=== PATIENT | female | born 1970 | race Caucasian/White ===

== ENCOUNTER → 2019-12-01 10:21 | Outpatient (BNVA) | payer MEDICAID, SELFPAY | PROVIDERS: Family Provider Family Medicine; PCP Family Medicine; Visit Provider Family Medicine | DX: E11.9 Type 2 diabetes mellitus without complications (principal); E78.00 Pure hypercholesterolemia, unspecified; F41.9 Anxiety disorder, unspecified | CPT/HCPCS: 80053; 80061; 83036; 83721 ==

== ENCOUNTER → 2020-06-14 10:14 | Outpatient (BNVA) | payer MEDICAID, SELFPAY | PROVIDERS: Family Provider Family Medicine; PCP Family Medicine; Visit Provider Family Medicine | DX: Z00.00 Encounter for general adult medical examination without abnormal findings (principal); E11.65 Type 2 diabetes mellitus with hyperglycemia; Z79.4 Long term (current) use of insulin; M54.41 Lumbago with sciatica, right side; G89.29 Other chronic pain; F41.9 Anxiety disorder, unspecified; M54.42 Lumbago with sciatica, left side | CPT/HCPCS: 36416; 82962 ==

== ENCOUNTER → 2021-01-17 09:28 | Outpatient (BNVA) | payer MEDICAID, SELFPAY | PROVIDERS: Family Provider Family Medicine; PCP Family Medicine; Visit Provider Family Medicine | DX: Z00.00 Encounter for general adult medical examination without abnormal findings (principal); E11.65 Type 2 diabetes mellitus with hyperglycemia; Z79.4 Long term (current) use of insulin; E78.00 Pure hypercholesterolemia, unspecified | CPT/HCPCS: 80053; 80061; 83036; 84439; 84443; 85025 ==

== ENCOUNTER 2021-07-25 12:28 | Outpatient (CLI) | payer BC, MEDICAID, SELFPAY ==
--- NOTE | 2021-07-25 13:05 | MM_ITS ---
WS: [id number] BILATERAL 3D TOMOSYNTHESIS DIGITAL SCREENING MAMMOGRAPHY WITH CAD CLINICAL INFORMATION: SCREENING HISTORY: Screening mammogram. Breast soreness COMPARISON: None. TECHNIQUE: Bilateral CC and MLO views. FINDINGS: Scattered fibroglandular densities bilaterally. Punctate calcification RIGHT breast. No suspicious fo placido mass, asymmetry, calcifications, or architectural distortion. No evidence of malignancy. MM/[place] [id number] IMPRESSION: BI-RADS: 2-Benign FOLLOW UP: 1 Year Follow-up Recommend return to annual screening mammography.
== END 2021-07-25 12:29 | disposition home or self-care (01) ==
LOC: RADSHAW 12:31
PROVIDERS: Family Provider Family Medicine; PCP Family Medicine; Visit Provider Family Medicine
DX: Z12.31 Encounter for screening mammogram for malignant neoplasm of breast (principal); N64.4 Mastodynia
CPT/HCPCS: 77063; 77067

== ENCOUNTER → 2021-11-28 09:20 | Outpatient (BNVA) | payer BC, MEDICAID, SELFPAY | PROVIDERS: Family Provider Family Medicine; PCP Family Medicine; Visit Provider Family Medicine | DX: E11.9 Type 2 diabetes mellitus without complications (principal); R63.4 Abnormal weight loss; E05.90 Thyrotoxicosis, unspecified without thyrotoxic crisis or storm | CPT/HCPCS: 80053; 82150; 83036; 84439; 84443; 85025 ==

== ENCOUNTER 2022-02-20 07:06 | Emergency (ER) | payer BC, MEDICAID, SELFPAY ==
[2022-02-20 07:16] VITALS: BP 113/75; PULSE 124; RESP 20; TEMP 36.3; O2SAT 100
--- NOTE | 2022-02-20 07:29 | ECG_ITS ---
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 Measurements Intervals [place] Rate: 88 P: 68 MA: 174 QRS: 10 QRSD: 90 T: 78 QT: 367 QTc: 445 Interpretive Statements SINUS RHYTHM SEPTAL MYOCARDIAL INFARCTION , OF INDETERMINATE AGE [40+ ms Q WAVE IN V1/V2] No previous ECG available for comparison Electronically Signed On 02-20-2022 19:03:57 CRICKET COACH by Socrates Ray M.D. [email or web address] children's [id number]
--- NOTE | 2022-02-20 07:33 | ED_ITS ---
Documented by User: YINA Sexton 02/20/22 16:20 HPI - Female Genitourinary General: Chief complaint: Urogenital-Female Stated complaint: urogenital Time Seen by Provider: 02/20/22 07:08 History of Present Illness: Patient is a 51-year-old female comes to the ED with genital pain. Patient states that approximately 4 days ago she noticed some swelling of her labia that has continued to get more painful over the past couple days and the swelling is gotten bigger. She rates her pain currently an 8 out of 10. She endorses having some dysuria. Patient reports having some white vaginal discharge. Associated symptoms: Reports vaginal discharge (White discharge); Deny abdominal pain, headache(s) or nausea Review of Systems Const: Denies: fever(s), chills or fatigue Eyes: Denies: change in vision or eye discomfort ENMT: Denies: throat pain, odynophagia, nasal discharge or nasal congestion Card: Denies: chest pain, palpitations, edema, swelling of feet/ankles, dyspnea on exertion or orthopnea Resp: Denies: dyspnea, productive cough or non-productive cough GI: Denies: abdominal pain, nausea, vomiting, diarrhea, constipation or hematochezia : Reports: difficulty voiding, genital lesions and vaginal discharge (White discharge); Denies: flank pain, dysuria or hematuria Musc: Denies: neck pain, back pain or extremity swelling Skin/Breast: Denies: rash or new lesions Neuro: Denies: headache(s), numbness in extremities or weakness in extremities PFS ED PFSH: Medical History (Updated 02/20/22 @ 16:20 by YINA Sexton) Abnormal weight loss Anxiety Chronic bilateral back pain Diabetes Diabetic neuropathy Encounter for screening mammogram for breast cancer Hypercholesteremia No pertinent family history Social History Smoking and tobacco status: current every day smoker Alcohol intake: never Physical Exam Const: COMMON NORMALS: no acute distress, patient oriented x3 and alert GENERAL APPEARANCE: cooperative and comfortable HENMT: COMMON NORMALS: normocephalic HEAD & SCALP: normocephalic MOUTH: Normal oral and palatal mucosa present THROAT: posterior oropharynx normal and uvula midline Neck/C-Spine: COMMON NORMALS: supple GENERAL: Yes normal visual inspection Resp: COMMON NORMALS: normal respiratory effort, No retractions, No use of accessory muscles and clear to auscultation bilaterally AUSCULTATION: clear to auscultation bilaterally Cardio: COMMON NORMALS: regular rate, regular rhythm, S1 normal heart sound present, S2 normal heart sound present, No gallops present (Cardio), No clicks present (Cardio), No murmurs present (Cardio) and Peripheral pulses 2+ throughout RATE: regular rate RHYTHM: regular rhythm HEART SOUNDS: S1 normal heart sound present and S2 normal heart sound present PERIPHERAL PULSES: Peripheral pulses 2+ throughout GI: COMMON NORMALS: Normal to inspection, nondistended, normoactive bowel sounds present, Soft to palpation, non-tender and no masses PALPATION: Yes Soft to palpation : COMMON NORMALS: Yes no CVA tenderness BLADDER/KIDNEY EXAM: Yes no CVA tenderness EXTERNAL FEMALE EXAM: Yes externally tender (Left labia), Yes external swelling (Left labia) and Yes other (White vaginal discharge) Back/Pelvis: COMMON NORMALS: no CVA tenderness Extremity: COMMON NORMALS: normal to inspection Neuro: COMMON NORMALS: patient oriented x3 SENSORIUM/ORIENTATION: Yes alert GAIT: Yes Normal gait present Skin: GENERAL SKIN EXAM: dry skin Course Consultations: Consultation #1: I contacted Dr. Cesar the OB specialist national account executive and told about patient case and CT findings. He stated he would like to come down to examine patient and then will decide how to treat. He came down and saw patient here in the ED and he is suspicious that patient has a bad STD infection. After he did a full pelvic with speculum exam on patient he came back and told me that he thinks patient has trichomonas and he collected swabs for gonorrhea, chlamydia and wet prep. He does not think patient needs to be admitted and should be discharged home with some antibiotics. He told me to have patient given a dose of IM Rocephin and send her home on Flagyl 500 mg twice daily for a week. Have her follow-up with PCP/Blood Bank Worker Later this week. Time: 11:25 Vital Signs: Vital signs: Vital Signs Temperature 97.3 F L 02/20/22 07:16 Pulse Rate 82 02/20/22 08:38 Respiratory Rate 14 02/20/22 08:38 Blood Pressure 114/66 02/20/22 08:38 Pulse Oximetry 98 02/20/22 08:38 Oxygen Delivery Me thod 02/20/22 08:38 MDM - Female Medical Decision Making Patient is a 51-year-old female comes to the ED with genital pain. Patient states that approximately 4 days ago she noticed some swelling of her labia that has continued to get more painful over the past couple days and the swelling is gotten bigger. Vitals are stable. Patient is a white blood cell count of 15.1 and her blood sugars 452. The rest of the labs were unremarkable. CT of abdomen pelvis showed possible left perineum abscess with an additional extensive soft tissue inflammation extending anterior to the mons pubis posterior to the perineum. I contacted Dr. Bray about patient case and he reviewed CT findings did not feel comfortable managing this patient and thought I should contact the Blood Bank Worker specialist. I contacted Dr. Cesar the Blood Bank Worker specialist national account executive and told about patient case and CT findings. He stated he would like to come down to examine patient and then will decide how to treat. He came down and saw patient here in the ED and he is suspicious that patient has a bad STD i nfection. After he did a full pelvic with speculum exam on patient he came back and told me that he thinks patient has trichomonas and he collected swabs for gonorrhea, chlamydia and wet prep. Dr. Cesar performed swab and looked under the microscope and saw trichomonas he does not think patient needs to be admitted and should be discharged home with some antibiotics. He told me to have patient given a dose of IM Rocephin and send her home on Flagyl 500 mg twice daily for a week. Have her follow-up with PCP/Blood Bank Worker Later this week. Lab Data I reviewed the patient's lab results. 02/20/22 07:50 02/20/22 07:[address] 02/20/22 07:50 IMPRESSION: 1. Well formed LEFT perineum abscess measuring 2.6 x 2.0 x 3.0 cm. There is additional extensive soft tissue inflammation extending anterior to the mons pubis and posterior to the perineum. 2. Additional soft tissue thickening extends across the midline to involve the vaginal introitus and the anus. Possibility of underlying mass needs to be considered and excluded with this amount of inflammation and soft tissue extension. 3. Markedly distended urinary bladder. Patient may not be able to void due to the extensive inflammation in the perineum. Laboratory Results WBC 15.1 10^3/uL (4.0-10.0) H 02/20/22 07:50 RBC 5.34 10^6/uL (4.1-5.3) H 02/20/22 07:50 Hgb 13.4 g/dL (11.5-15.3) 02/20/22 07:50 Hct 42.5 % (37.0-47.0) 02/20/22 07:50 MCV 79.6 fl (81-99) L 02/20/22 07:50 MCH 25.1 pg (28.0-34.0) L 02/20/22 07:50 MCHC 31.5 g/dL (30.0-36.0) 02/20/22 07:50 RDW 13.4 % (12.1-15.1) 02/20/22 07:50 Plt Count 435 10^3/cmm (130-400) H 02/20/22 07:50 MPV 9.8 fL (7.4-10.4) 02/20/22 07:50 Neut % (Auto) 70.8 % 02/20/22 07:50 Lymph % (Auto) 18.8 % 02/20/22 07:50 [place] % (Auto) 9.0 % 02/20/22 07:50 Eos % (Auto) 0.5 % 02/20/22 07:50 Baso % (Auto) 0.6 % 02/20/22 07:50 Neut # (Auto) 10.65 10^3/uL (1.8-7.7) H 02/20/22 07:50 Lymph # (Auto) 2.8 10^3/uL (0.8-4.8) 02/20/22 07:50 [place] # (Auto) 1.4 10^3/uL (0.2-0.9) H 02/20/22 07:50 Eos # (Auto) 0.1 10^3/uL (0.0-0.8) 02/20/22 07:50 Baso # (Auto) 0.1 10^3/uL (0.0-0.1) 02/20/22 07:50 Nucleated RBC % (auto) 0 % 02/20/22 07:50 Nucleated RBCs # 0.0 /100WBC 02/20/22 07:50 Sodium 129 mmol/L (136-145) L 02/20/22 07:50 Potassium 4.3 mmol/L (3.5-5.1) 02/20/22 07:50 Chloride 90 mmol/L (98-107) L 02/20/22 07:50 Carbon Dioxide 25 mmol/L (22-29) 02/20/22 07:50 Anion Gap 18.3 (5-19) 02/20/22 07:50 BUN 18 mg/dL (6-20) 02/20/22 07:50 Creatinine 0.9 mg/dL (0.5-0.9) 02/20/22 07:50 GFR Calculation 65.8 mL/min (90-130) L 02/20/22 07:50 Glucose 452 mg/dL (65-115) H 02/20/22 07:50 POC Glucose 220 mg/dL (70-110) H 02/20/22 10:13 Calculated Osmolality 290 mOsm/kg (285-295) 02/20/22 07:50 Calcium 9.8 mg/dL (8.5-10.5) 02/20/22 07:50 Total Bilirubin 0.2 mg/dL (0.15-1.2) 02/20/22 07:50 AST 14 U/L (0-32) 02/20/22 07:50 ALT 16 U/L (0-33) 02/20/22 07:50 Alkaline Phosphatase 117 U/L (35-105) H 02/20/22 07:50 Total Protein 8.3 g/dL (6.6-8.7) 02/20/22 07:50 Albumin 4.2 g/dL (3.5-5.2) 02/20/22 07:50 Globulin 4.1 g/dL (1.3-4.6) 02/20/22 07:50 Lipase 21 U/L (13-60) 02/20/22 07:50 Serum Ketones Negative (Negative) 02/20/22 07:50 Discharge Plan Discharge Patient Disposition: Home Clinical Impression: STD (sexually transmitted disease) Hyperglycemia due to type 2 diabetes mellitus Qualifiers: Diabetes mellitus parts counterman insulin use: without retirement use Qualified Code(s): E11.65 - Type 2 diabetes mellitus with hyperglycemia Condition: Stable Prescriptions: New metronidazole 500 mg tablet 500 mg PO BID 7 Days Qty: 14 0RF No Action melatonin 3 mg capsule 3 mg PO DAILY ascorbic acid (vitamin C) 1,000 mg tablet 500 mg PO DAILY TobraDex 0.3-0.1 % ointment 1 applic ophthalmic (eye) TID Qty: 3.5 1RF Rx Instructions: space evenly during waking hours fluconazole [Diflucan] 150 mg tablet 150 mg PO Q3D 15 Days Qty: 5 0RF doxycycline hyclate 100 mg tablet 100 mg PO BID Qty: 20 0RF pravastatin 40 mg tablet 40 mg PO DAILY 90 Days Qty: 90 3RF Farxiga 10 mg tablet See Rx Instructions .ROUTE .COMPLEX 60 Days Qty: 60 1RF Dose Instruction: TAKE 1 TABLET BY MOUTH EVERY DAY Rx Instructions: TAKE 1 TABLET BY MOUTH EVERY DAY pregabalin 200 mg capsule 200 mg PO BID 90 Days Qty: 180 5RF albuterol sulfate [ProAir HFA] 90 mcg/actuation HFA aerosol inhaler 2 puff INHALATION QID PRN (Reason: shortness of breath or wheezing) 30 Days Qty: 18 11RF metformin 500 mg tablet See Rx Instructions .ROUTE .COMPLEX Qty: 60 5RF Dose Instruction: TAKE ONE TABLET BY MOUTH TWICE DAILY Rx Instructions: TAKE ONE TABLET BY MOUTH TWICE DAILY Humulin R U-500 (Conc) Kwikpen 500 unit/mL (3 mL) insulin pen 50 unit SUBCUT .before meals TID 30 Days Qty: 6 5RF azithromycin 250 mg tablet See Rx Instructions PO .COMPLEX Qty: 6 0RF Rx Instructions: For 250 mg dose pack: take 500 mg today (day 1), then 250 mg for 4 days (days 2-5) PO carisoprodol 350 mg tablet 350 mg PO ONCE 30 Days Qty: 30 5RF fluticasone propionate 50 mcg/actuation spray,suspension 2 spray INTRANASAL DAILY 30 Days Qty: 18.2 5RF Rx Instructions: administer into each nostril alprazolam 1 mg tablet 1 mg PO BID 30 Days Qty: 60 5RF hydrocodone-acetaminophen 10-325 mg tablet 1 tab PO .One to TID as needed PRN (Reason: pain) 30 Days Qty: 75 0RF Discharge Orders: Discharge ED (Routine); Ordered 02/20/22 Ordered By: Joseluis Irvin Referrals: Bentley Elizabeth MD [Primary Care Provider] - Discharge Diet: Regular Discharge Activity: Increase activity as tolerated Patient Instructions: Sexually Transmitted Diseases (ED), Trichomoniasis (ED), Opioid Safety Activity Restrictions/Additional Instructions: Follow-up with medical provider as directed for reevaluation in the next 3 days. Take medications as prescribed. Return to the ER or your medical provider if condition worsens. Please read and understand discharge instructions. Thank you for choosing [facility] for your healthcare needs today. Please realize this is an emergency room and that we are providing you with a medical screening exam and this may not be complete and all inclusive of all the testing and or work up that you may need to determine your ailment or severity of your illness. It is very important that you follow up as instructed or that you return to the Emergency Department should you have concerns or if your condition changes or worsens in any way. Coding Level of Care Code ED Fish Conservationist for Chg Fwd Exam Comprehensive Documented by User: Demario Alex DO 02/20/22 16:29 HPI - Female Genitourinary General: Chief complaint: Urogenital-Female Stated complaint: urogenital Time Seen by Provider: 02/20/22 07:08 [facility] ED PFSH: Medical History (Updated 02/20/22 @ 16:20 by YINA Sexton) Abnormal weight loss Anxiety Chronic bilateral back pain Diabetes Diabetic neuropathy Encounter for screening mammogram for breast cancer Hypercholesteremia No pertinent family history Social History Smoking and tobacco status: current every day smoker Alcohol intake: never Course Vital Signs: Vital signs: Vital Signs Temperature 97.3 F L 02/20/22 07:16 Pulse Rate 82 02/20/22 08:38 Respiratory Rate 14 02/20/22 08:38 Blood Pressure 114/66 02/20/22 08:38 Pulse Oximetry 98 02/20/22 08:38 Oxygen Delivery Me thod 02/20/22 08:38 MDM - Female Medical Decision Making Patient is a 51-year-old female comes to the ED with genital pain. Patient states that approximately 4 days ago she noticed some swelling of her labia that has continued to get more painful over the past couple days and the swelling is gotten bigger. Vitals are stable. Patient is a white blood cell count of 15.1 and her blood sugars 452. The rest of the labs were unremarkable. CT of abdomen pelvis showed possible left perineum abscess with an additional extensive soft tissue inflammation extending anterior to the mons pubis posterior to the perineum. I contacted Dr. Bray about patient case and he reviewed CT findings did not feel comfortable managing this patient and thought I should contact the Blood Bank Worker specialist. I contacted Dr. Cesar the Blood Bank Worker specialist national account executive and told about patient case and CT findings. He stated he would like to come down to examine patient and then will decide how to treat. He came down and saw patient here in the ED and he is suspicious that patient has a bad STD infection. After he did a full pelvic with speculum exam on patient he came back and told me that he thinks patient has trichomonas and he collected swabs for gonorrhea, chlamydia and wet prep. Dr. Cesar performed swab and looked under the microscope and saw trichomonas he does not think patient needs to be admitted and should be discharged home with some antibiotics. He told me to have patient given a dose of IM Rocephin and send her home on Flagyl 500 mg twice daily for a week. Have her follow-up with PCP/Blood Bank Worker Later this week. Chart reviewed and patient discussed with midlevel. Agree with assessment and plan. Lab Data 02/20/22 07:50 02/20/22 07:[address] 02/20/22 07:50 IMPRESSION: 1. Well formed LEFT perineum abscess measuring 2.6 x 2.0 x 3.0 cm. There is additional extensive soft tissue inflammation extending anterior to the mons pubis and posterior to the perineum. 2. Additional soft tissue thickening extends across the midline to involve the vaginal introitus and the anus. Possibility of underlying mass needs to be considered and excluded with this amount of inflammation and soft tissue extension. 3. Markedly distended urinary bladder. Patient may not be able to void due to the extensive inflammation in the perineum. Laboratory Results WBC 15.1 10^3/uL (4.0-10.0) H 02/20/22 07:50 RBC 5.34 10^6/uL (4.1-5.3) H 02/20/22 07:50 Hgb 13.4 g/dL (11.5-15.3) 02/20/22 07:50 Hct 42.5 % (37.0-47.0) 02/20/22 07:50 MCV 79.6 fl (81-99) L 02/20/22 07:50 MCH 25.1 pg (28.0-34.0) L 02/20/22 07:50 MCHC 31.5 g/dL (30.0-36.0) 02/20/22 07:50 RDW 13.4 % (12.1-15.1) 02/20/22 07:50 Plt Count 435 10^3/cmm (130-400) H 02/20/22 07:50 MPV 9.8 fL (7.4-10.4) 02/20/22 07:50 Neut % (Auto) 70.8 % 02/20/22 07:50 Lymph % (Auto) 18.8 % 02/20/22 07:50 [place] % (Auto) 9.0 % 02/20/22 07:50 Eos % (Auto) 0.5 % 02/20/22 07:50 Baso % (Auto) 0.6 % 02/20/22 07:50 Neut # (Auto) 10.65 10^3/uL (1.8-7.7) H 02/20/22 07:50 Lymph # (Auto) 2.8 10^3/uL (0.8-4.8) 02/20/22 07:50 [place] # (Auto) 1.4 10^3/uL (0.2-0.9) H 02/20/22 07:50 Eos # (Auto) 0.1 10^3/uL (0.0-0.8) 02/20/22 07:50 Baso # (Auto) 0.1 10^3/uL (0.0-0.1) 02/20/22 07:50 Nucleated RBC % (auto) 0 % 02/20/22 07:50 Nucleated RBCs # 0.0 /100WBC 02/20/22 07:50 Sodium 129 mmol/L (136-145) L 02/20/22 07:50 Potassium 4.3 mmol/L (3.5-5.1) 02/20/22 07:50 Chloride 90 mmol/L (98-107) L 02/20/22 07:50 Carbon Dioxide 25 mmol/L (22-29) 02/20/22 07:50 Anion Gap 18.3 (5-19) 02/20/22 07:50 BUN 18 mg/dL (6-20) 02/20/22 07:50 Creatinine 0.9 mg/dL (0.5-0.9) 02/20/22 07:50 GFR Calculation 65.8 mL/min (90-130) L 02/20/22 07:50 Glucose 452 mg/dL (65-115) H 02/20/22 07:50 POC Glucose 220 mg/dL (70-110) H 02/20/22 10:13 Calculated Osmolality 290 mOsm/kg (285-295) 02/20/22 07:50 Calcium 9.8 mg/dL (8.5-10.5) 02/20/22 07:50 Total Bilirubin 0.2 mg/dL (0.15-1.2) 02/20/22 07:50 AST 14 U/L (0-32) 02/20/22 07:50 ALT 16 U/L (0-33) 02/20/22 07:50 Alkaline Phosphatase 117 U/L (35-105) H 02/20/22 07:50 Total Protein 8.3 g/dL (6.6-8.7) 02/20/22 07:50 Albumin 4.2 g/dL (3.5-5.2) 02/20/22 07:50 Globulin 4.1 g/dL (1.3-4.6) 02/20/22 07:50 Lipase 21 U/L (13-60) 02/20/22 07:50 Serum Ketones Negative (Negative) 02/20/22 07:50 Discharge Plan Discharge Patient Disposition: Home Clinical Impression: STD (sexually transmitted disease) Hyperglycemia due to type 2 diabetes mellitus Qualifiers: Diabetes mellitus parts counterman insulin use: without retirement use Qualified Code(s): E11.65 - Type 2 diabetes mellitus with hyperglycemia Condition: Stable Prescriptions: New metronidazole 500 mg tablet 500 mg PO BID 7 Days Qty: 14 0RF No Action melatonin 3 mg capsule 3 mg PO DAILY ascorbic acid (vitamin C) 1,000 mg tablet 500 mg PO DAILY TobraDex 0.3-0.1 % ointment 1 applic ophthalmic (eye) TID Qty: 3.5 1RF Rx Instructions: space evenly during waking hours fluconazole [Diflucan] 150 mg tablet 150 mg PO Q3D 15 Days Qty: 5 0RF doxycycline hyclate 100 mg tablet 100 mg PO BID Qty: 20 0RF pravastatin 40 mg tablet 40 mg PO DAILY 90 Days Qty: 90 3RF Farxiga 10 mg tablet See Rx Instructions .ROUTE .COMPLEX 60 Days Qty: 60 1RF Dose Instruction: TAKE 1 TABLET BY MOUTH EVERY DAY Rx Instructions: TAKE 1 TABLET BY MOUTH EVERY DAY pregabalin 200 mg capsule 200 mg PO BID 90 Days Qty: 180 5RF albuterol sulfate [ProAir HFA] 90 mcg/actuation HFA aerosol inhaler 2 puff INHALATION QID PRN (Reason: shortness of breath or wheezing) 30 Days Qty: 18 11RF metformin 500 mg tablet See Rx Instructions .ROUTE .COMPLEX Qty: 60 5RF Dose Instruction: TAKE ONE TABLET BY MOUTH TWICE DAILY Rx Instructions: TAKE ONE TABLET BY MOUTH TWICE DAILY Humulin R U-500 (Conc) Kwikpen 500 unit/mL (3 mL) insulin pen 50 unit SUBCUT .before meals TID 30 Days Qty: 6 5RF azithromycin 250 mg tablet See Rx Instructions PO .COMPLEX Qty: 6 0RF Rx Instructions: For 250 mg dose pack: take 500 mg today (day 1), then 250 mg for 4 days (days 2-5) PO carisoprodol 350 mg tablet 350 mg PO ONCE 30 Days Qty: 30 5RF fluticasone propionate 50 mcg/actuation spray,suspension 2 spray INTRANASAL DAILY 30 Days Qty: 18.2 5RF Rx Instructions: administer into each nostril alprazolam 1 mg tablet 1 mg PO BID 30 Days Qty: 60 5RF hydrocodone-acetaminophen 10-325 mg tablet 1 tab PO .One to TID as needed PRN (Reason: pain) 30 Days Qty: 75 0RF Discharge Orders: Discharge ED (Routine); Ordered 02/20/22 Ordered By: Joseluis Irvin Referrals: Bentley Elizabeth MD [Primary Care Provider] - Discharge Diet: Regular Discharge Activity: Increase activity as tolerated Patient Instructions: Sexually Transmitted Diseases (ED), Trichomoniasis (ED), Opioid Safety Activity Restrictions/Additional Instructions: Follow-up with medical provider as directed for reevaluation in the next 3 days. Take medications as prescribed. Return to the ER or your medical provider if condition worsens. Please read and understand discharge instructions. Thank you for choosing [facility] for your healthcare needs today. Please realize this is an emergency room and that we are providing you with a medical screening exam and this may not be complete and all inclusive of all the testing and or work up that you may need to determine your ailment or severity of your illness. It is very important that you follow up as instructed or that you return to the Emergency Department should you have concerns or if your condition changes or worsens in any way. Coding Level of Care Code ED Fish Conservationist for Karina Isidro Exam Comprehensive
--- NOTE | 2022-02-20 07:50 | CT_ITS ---
WS: [id number] CT PELVIS WITH CONTRAST. HISTORY: genital abscess TECHNIQUE: Contiguous imaging is performed of the pelvis with contrast. Coronal and sagittal reformat s are reviewed. All CT scans at [facility] use at least one of these dose optimization techni ques: automated exposure control; mA and/or kV adjustment per patient size (includes targeted exams w here dose is matched to clinical indication); or iterative reconstruction. DLP: 235.21 mGy.cm Contrast: Omnipaque 350; 95 mL IV. COMPARISON: None available. Well-circumscribed abscess with wall enhancement centered in the LEFT perineum measures 2.6 x 2.0 x 3 .0 cm. There is a large amount of surrounding edema with extensive soft tissue inflammation extending anteriorly and posterolateral. There is marked soft tissue thickening extends to involve the vaginal introitus and also surrounding the anus bilaterally. There is marked distention of the urinary bladd er with the bladder measuring 11.5 x 9.0 cm. Diffuse mild fecal retention. Scattered mild atherosclerotic plaque. There are very small bilateral i nguinal lymph nodes which mildly hyperemic. CT/CT pelvis w con* [id number] IMPRESSION: 1. Well formed LEFT perineum abscess measuring 2.6 x 2.0 x 3.0 cm. There is ad ditional extensive soft tissue inflammation extending anterior to the mons pubi s and posterior to the perineum. 2. Additional soft tissue thickening extends across the midline to involve the vaginal introitus and the anus. Possibility of underlying mass needs to be con sidered and excluded with this amount of inflammation and soft tissue extension . 3. Markedly distended urinary bladder. Patient may not be able to void due to the extensive inflammation in the perineum.
[2022-02-20] MEDS: sodium chloride 0.9% 500 ML 999 ML IV (07:59)
[2022-02-20] MEDS: morphine 4 mg/mL SDV 1 mL IVP (08:00)
[2022-02-20] MEDS: ondansetron 2 mg/ML SDV 2 mL 4 MG IVP (08:00)
[2022-02-20 08:02] LABS: Basophils # 0.1 10^3/uL (0.0-0.1); Basophils % 0.6 %; Eosinophils # 0.1 10^3/uL (0.0-0.8); Eosinophils % 0.5 %; Hematocrit 42.5 % (37.0-47.0); Hemoglobin 13.4 g/dL (11.5-15.3); Lymphocytes # 2.8 10^3/uL (0.8-4.8); Lymphocytes % 18.8 %; Mean Corpuscular HGB Conc 31.5 g/dL (30.0-36.0); Mean Corpuscular Hemoglobin 25.1 pg (28.0-34.0); Mean Corpuscular Volume 79.6 fl (81-99); Mean Platelet Volume 9.8 fL (7.4-10.4); Monocytes # 1.4 10^3/uL (0.2-0.9); Neutrophils # 10.65 10^3/uL (1.8-7.7); Neutrophils % 70.8 %; Nucleated Red Blood Cells % 0 %; Platelet Count 435 10^3/cmm (130-400); Red Blood Count 5.34 10^6/uL (4.1-5.3); Red Cell Distribution Width 13.4 % (12.1-15.1); White Blood Count 15.1 10^3/uL (4.0-10.0)
[2022-02-20 08:19] LABS: Alanine Aminotransferase 16 U/L (0-33); Albumin Level 4.2 g/dL (3.5-5.2); Alkaline Phosphatase 117 U/L (35-105); Anion Gap 18.3 (5-19); Aspartate Amino Transferase 14 U/L (0-32); Blood Urea Nitrogen 18 mg/dL (6-20); Calcium 9.8 mg/dL (8.5-10.5); Carbon Dioxide 25 mmol/L (22-29); Chloride 90 mmol/L (98-107); Globulin 4.1 g/dL (1.3-4.6); Glomerular Filtration Rate 65.8 mL/min (90-130); Glucose 452 mg/dL (65-115); Lipase 21 U/L (13-60); Osmolality Calculated 290 mOsm/kg (285-295); Potassium 4.3 mmol/L (3.5-5.1); Sodium 129 mmol/L (136-145); Total Bilirubin 0.2 mg/dL (0.15-1.2); Total Protein 8.3 g/dL (6.6-8.7)
[2022-02-20 08:38] VITALS: BP 114/66; PULSE 82; RESP 14; O2SAT 98
[2022-02-20 08:44] LABS: Ketone (Acetest) Serum Negative (Negative)
[2022-02-20] MEDS: iohexol 350 mg/mL 500 mL Btl (per mL) IV (08:44)
[2022-02-20] MEDS: insulin regular-human 100 units/1 mL 10 UNIT IVP (08:48)
[2022-02-20 10:17] LABS: Glucose Point of Care 220 mg/dL (70-110)
[2022-02-20] MEDS: piperacillin-tazobactam 3.375 GM in sodium chloride 0.9% (plus) 50 ML IV (11:14)
[2022-02-20] MEDS: metroNIDAZOLE 500 MG Tablet PO (11:49)
--- NOTE | 2022-02-20 13:05 | PM.OBGYCN ---
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 Presents to ER c/o pain and swelling in vulva x three days No fever, chills, nausea, vomiting Exam:?comfortable ?Afebrile, VS? normal ?Abd:? soft, nontender ?Vulva:? + erythema / edema ?No abscess ?Vagina:? + copious amount of frothy, purulent discharge ? Wet mount?? +? trichomonads ? GC, Chl, Genprobe done A/P: Vulvar edema / vaginal discharge c/w trichomoniasis no evidence of vulvar abscess plan rx with Rocephin 500 mg IM and Flagyl 500 mg PO BID x 7 days informed patient of sexually-transmitted nature of trichomoniasis advised patient to get partner treated f/u with inspector fibrous wallboard within one week call/return if symptoms persist / worsen Medications/Allergies Home Medications Medication Instructions Recorded Confirmed Last Taken Type ascorbic acid (vitamin C) 1,000 mg 500 mg PO DAILY 06/14/20 01/02/22 Unknown History tablet melatonin 3 mg capsule 3 mg PO DAILY 06/14/20 01/02/22 Unknown History tobramycin-dexamethasone 0.3 %-0.1 1 applic ophthalmic (eye) TID #3.5 01/17/21 01/02/22 Unknown Rx % eye ointment (TobraDex) grams dapagliflozin 10 mg tablet See Rx Instructions .Route 09/28/21 01/02/22 Unknown Rx (Farxiga) .COMPLEX 60 days #60 tabs pravastatin 40 mg tablet 40 mg PO DAILY 90 days #90 tabs 09/28/21 01/02/22 Unknown Rx pregabalin 200 mg capsule 200 mg PO BID 90 days #180 caps 09/28/21 01/02/22 Unknown Rx albuterol sulfate 90 mcg/actuation 2 puff inhalation QID PRN 11/02/21 01/02/22 Unknown Rx aerosol inhaler (ProAir HFA) shortness of breath or wheezing 30 days #18 grams metformin 500 mg tablet See Rx Instructions .Route 11/20/21 01/02/22 Unknown Rx .COMPLEX #60 tabs doxycycline hyclate 100 mg tablet 100 mg PO BID #20 tabs 01/02/22 01/02/22 Unknown Rx fluconazole 150 mg tablet 150 mg PO Q3D 15 days #5 tabs 01/02/22 01/02/22 Unknown Rx (Diflucan) azithromycin 250 mg tablet See Rx Instructions PO .COMPLEX #6 01/04/22 Unknown Rx tabs insulin regular hum U-500 conc 500 50 unit (0.1 mL) SUBCUT .before 01/04/22 Unknown Rx unit/mL(3 mL) subcut pen (Humulin meals TID 30 days #6 mL R U-500 (Conc) Insulin Kwikpen) carisoprodol 350 mg tablet 350 mg PO ONCE 30 days #30 tabs 01/19/22 Unknown Rx fluticasone propionate 50 2 spray intranasal DAILY 30 days 01/20/22 Unknown Rx mcg/actuation nasal #18.2 mL spray,suspension alprazolam 1 mg tablet 1 mg PO BID 30 days #60 tabs 01/27/22 Unknown Rx hydrocodone 10 mg-acetaminophen 1 tab PO .One to TID as needed PRN 02/03/22 Unknown Rx 325 mg tablet pain 30 days #75 tabs metronidazole 500 mg tablet 500 mg PO BID 7 days #14 tabs 02/20/22 Unknown Rx Allergies Allergy/AdvReac Type Severity Reaction Status Date / Time No Known Allergies Allergy Verified 01/02/22 10:49 Additional Medication Information avoid alcohol while taking flagyl REPLACED BY [facility] METER INSTALLER AND REMOVER REPLACED BY [facility]: Medical History Abnormal weight loss Anxiety Chronic bilateral back pain Diabetes Diabetic neuropathy Encounter for screening mammogram for breast cancer Hypercholesteremia Social History Smoking and tobacco status: current every day smoker Alcohol intake: never Vitals/I&O/Wt Last Vital Signs Temp 97.3 F L 02/20/22 07:16 Pulse 82 02/20/22 08:38 Resp 14 02/20/22 08:38 BP 114/66 02/20/22 08:38 Pulse Ox 98 02/20/22 08:38 O2 Del Method 02/20/22 08:38 02/19/22 02/20/22 02/20/22 22:59 06:59 14:59 Intake Total 550 / 550 Balance 550 / 550 Weight last 48 hrs Weight 100 lb Data 02/20/22 07:50 02/20/22 07:50 Micro: Microbiology 02/20/22 11:05 Wet Prep - Final Vaginal A&P Assessment and plan (1) STD (sexually transmitted disease): (2) Trichomoniasis of vagina: Consult Attestations Medical Necessity Statement: treatment of trichomoniasis Coding Level of Care Code Acute Ict Project Manager for g Fwd Diagnoses STD (sexually transmitted disease) A64 Trichomoniasis of vagina A59.01
== END 2022-02-20 11:53 | disposition home or self-care (01) ==
PROVIDERS: Emergency Provider Physician Assistant; PCP Family Medicine
DX: N89.8 Other specified noninflammatory disorders of vagina (principal); A64 Unspecified sexually transmitted disease; E11.65 Type 2 diabetes mellitus with hyperglycemia; Z79.4 Long term (current) use of insulin; Z79.84 Long term (current) use of oral hypoglycemic drugs; F17.210 Nicotine dependence, cigarettes, uncomplicated
CPT/HCPCS: 12345; 36416; 72193; 80053; 82009; 82962; 83690; 85025; 87210; 87491; 87591; 93005; 96365; 96372; 96375; 99285; E0352; J0696; J1815; J2270; J2405; J2543; J7040; Q9967

== ENCOUNTER → 2022-03-27 09:40 | Outpatient (BNVA) | payer BC, MEDICAID, SELFPAY | PROVIDERS: PCP Family Medicine; Visit Provider Family Medicine | DX: E11.65 Type 2 diabetes mellitus with hyperglycemia (principal); Z79.4 Long term (current) use of insulin | CPT/HCPCS: 80053; 80061; 83036; 84439; 84443; 85025 ==

== ENCOUNTER 2022-05-08 15:38 | Outpatient (CLI) | payer BC, MEDICAID, SELFPAY ==
--- NOTE | 2022-05-08 15:57 | XR_ITS ---
WS: [id number] Exam: XR tibia fibula RT 2V [id number] Date/Time of Exam: 05/08/2022 3:57 PM Reason For Exam: continued pain lower leg 5 d p injury No obvious fracture or dislocation. Articular relationships are intact. Normal soft tissues. XR/XR tibia fibula RT 2V [id number] IMPRESSION: 1. Negative right lower leg.
--- NOTE | 2022-05-08 15:57 | XR_ITS ---
WS: [id number] Exam: XR ankle RT 2V [id number] Date/Time of Exam: 05/08/2022 3:57 PM Reason For Exam: continued pain 5 days after fall Findings: Multiple views of the ankle reveal no fracture or displacements of bone. No soft tissue swelling is present. There are no periosteal reactions noted. The talus and calcaneus are in adequate position. The joint space is smooth and equidistant. XR/XR ankle RT 2V [id number] IMPRESSION: Negative right ankle.
== END 2022-05-08 15:39 | disposition home or self-care (01) ==
PROVIDERS: PCP Family Medicine; Visit Provider Family Medicine
DX: M79.661 Pain in right lower leg (principal); M25.571 Pain in right ankle and joints of right foot; W19.XXXA Unspecified fall, initial encounter
CPT/HCPCS: 73590; 73600

== ENCOUNTER → 2022-10-30 16:00 | Outpatient (BNVA) | payer BC, MEDICAID, SELFPAY | PROVIDERS: PCP Family Medicine; Visit Provider Family Medicine | DX: E11.9 Type 2 diabetes mellitus without complications (principal); E78.00 Pure hypercholesterolemia, unspecified | CPT/HCPCS: 80053; 80061; 83036 ==

== ENCOUNTER → 2023-01-03 10:18 | Outpatient (BNVA) | payer BC, MEDICAID, SELFPAY | PROVIDERS: PCP Family Medicine; Referring Provider Family Medicine; Visit Provider Internal Medicine | DX: E11.9 Type 2 diabetes mellitus without complications (principal) | CPT/HCPCS: 36415; 80053; 84681; 86337; 86341 ==

== ENCOUNTER → 2023-02-07 08:54 | Outpatient (BNVA) | payer BC, MEDICAID, SELFPAY | PROVIDERS: PCP Family Medicine; Visit Provider Podiatrist Foot & Ankle Surgery | DX: M95.8 Other specified acquired deformities of musculoskeletal system; M25.371 Other instability, right ankle; M79.671 Pain in right foot | CPT/HCPCS: 73610; 73630 ==

== ENCOUNTER 2023-03-04 18:01 | Emergency (ER) | payer BC, MEDICAID, SELFPAY ==
[2023-03-04 18:27] VITALS: BP 113/54; PULSE 102; RESP 17; TEMP 36.6; O2SAT 100
--- NOTE | 2023-03-04 19:48 | CTR_ITS ---
PROCEDURE INFORMATION: Exam: CT Right Upper Extremity With Contrast, Hand Exam date and time: 03/04/2023 8:19 PM Age: 52 years old Clinical indication: Pain; Fingers; Right; Finger(s); Patient HX: Patient sustained lac to RT thumb 8 days ago. Now has diffuse swelling to entire thumb with non healing wound. Also has non healing wound to distal phalange of third digit. History of diabetes. ; Additional info: Eval for osteo, dm, finger wounds (attn index and distal 4th) TECHNIQUE: Imaging protocol: Computed tomography of the right upper extremity with contrast. Exam focused on the hand. Radiation optimization: All CT scans at this facility use at least one of these dose optimization techniques: automated exposure control; mA and/or kV adjustment per patient size (includes targeted exams where dose is matched to clinical indication); or iterative reconstruction. Contrast material: OMNI 350; Contrast volume: 80 ml; Contrast route: INTRAVENOUS (IV); REPORTING DATA: Count of CT and Cardiac NM exams in prior 12 months: This patient has received 0 known CTs and 0 known cardiac nuclear medicine studies in the 12 months prior to the current study. COMPARISON: No relevant prior studies available. RADIATION DOSE METRICS: Total DLP (mGy-cm): 453.94 FINDINGS: Bones/joints: There is destruction in the base and mid shaft of the thumb distal phalanx with a pathologic fracture. This does not appear to involve the thumb IP joint. The other bones are intact. Degenerative changes of the 1st MCP joint. Soft tissues: Soft tissue swelling in the thumb. 1.5 x 1.0 x 1.9 cm fluid collection in the volar soft tissues of the distal, suspicious for an abscess. Soft tissue swelling in the dorsal 4th finger at the level of the PIP joint. No organized fluid collection or abscess identified. CT/CT hand RT w con [id number] IMPRESSION: 1. Osteomyelitis with a pathologic fracture in the thumb distal phalanx. This does not appear to involve the interphalangeal joint. 2. Findings suspicious for a 1.9 cm soft tissue abscess in the distal thumb. 3. Soft tissue swelling dorsal to the 4th proximal interphalangeal joint without a visible abscess.
--- NOTE | 2023-03-04 19:48 | ED_ITS ---
Documented by User: YINA Kaplan 03/05/23 01:54 HPI - Extremity Problem 2 General: Chief complaint: Extremity Problem,Nontraumatic Stated complaint: Rt Hand Finger Injury Time Seen by Provider: 03/04/23 18:47 Source: patient Mode of arrival: ambulatory Limitations: no limitations History of Present Illness: Patient presents emergency department today accompanied by family for evaluation treatment of acute worsening of infection to the right thumb and right third finger. Per chart review, patient injured her finger approximately week and a half ago. She states she was making a craft and accidentally cut her finger on some barbed wire. Patient was seen by her primary care about 3 days later where they were concerned for infection and prescribed her Keflex. Patient admittedly did not get the medication for another 48 hours and started medication on 02/28. On 03/01 she went to go see her primary care doctor as the swelling had significantly worsened and had requested to have the thumb lanced. Chart review shows they attempted lancing the finger but there was no purulent return. They also noted she was developing what looked like another ulceration and wound to her distal third finger. Primary care indicated they may require additional antibiotic coverage after the weekend if she was not improving. Patient states she has been on the Keflex now for approximately 4 to 5 days and continues to have worsening redness and swelling of her right thumb. She denies fevers. She has had some spontaneous drainage from the thumb. She states she has been keeping her fingers covered and bandaged during this time. Review of Systems 2 General: Reports: 10 or more systems reviewed and unremarkable except in HPI and below PFSH ED 2 PFSH: Medical History Right ankle strain No pertinent family history Abnormal weight loss Encounter for screening mammogram for breast cancer Diabetic neuropathy Diabetes Anxiety Hypercholesteremia Chronic bilateral back pain Social History Smoking and tobacco/nicotine status: current every day tobacco/nicotine user Alcohol intake: never Substance/Drug Use: never Physical Exam 2 Const: COMMON NORMALS: no acute distress, patient oriented x3 and alert HENMT: COMMON NORMALS: normocephalic, atraumatic and hearing grossly normal bilaterally HEAD & SCALP: normocephalic and atraumatic Eye: COMMON NORMALS: Equal, round and reactive pupils present, EOMs intact bilaterally and conjunctivae normal CONJUNCTIVA: Yes conjunctivae normal P UPIL: Yes Equal, round and reactive pupils present Neck/C-Spine: COMMON NORMALS: full ROM and no JVD Lymph: LYMPHATIC: no lymphadenopathy noted Resp: COMMON NORMALS: normal respiratory effort, No retractions and No use of accessory muscles Cardio: COMMON NORMALS: no JVD and regular rate RATE: regular rate Extremity: NARRATIVE EXTREMITY EXAM: Patient has obvious swelling of the right distal thumb. Is erythematous and there is an area of spontaneous drainage noted to the lateral portion of the finger. Patient also has an open ulceration noted to the lateral portion of the right distal third finger at the finger pad. No signs of active draining from the site. Patient has a eschar covering a ulcer affecting the finger pad of the right thumb approximately 1 and half centimeters in diameter. Neuro: COMMON NORMALS: patient oriented x3 SENSORIUM/ORIENTATION: Yes alert Psych: COMMON NORMALS: mental status grossly normal, Normal thought process present, cooperative and normal affect THOUGHT PROCESS: Normal thought process present Skin: COMMON NORMALS: no rashes or lesions noted and turgor normal GENERAL SKIN EXAM: no rashes or lesions noted and turgor normal Course 2 Vital Signs: Vital signs: Vital Signs Temperature 97.8 F 03/04/23 18:27 Pulse Rate 100 03/04/23 22:54 Respiratory Rate 17 03/04/23 18:27 Blood Pressure 113/54 03/04/23 18:27 Pulse Oximetry 96 03/04/23 22:54 Oxygen Delivery Me thod Room Air 03/04/23 18:27 MDM - Extremity (Nontraumatic) Medical Decision Making Given that the patient is already been on antibiotics now for approximately 4 to 5 days and had an attempted I&D that was unsuccessful, I did perform a CT examination of the hand to evaluate for soft tissue abscess and to evaluate for osteomyelitis. Lab work was obtained. However, lab work showed no acute abnormalities other than slightly elevated inflammatory markers. Lactic and procalcitonin were normal as well as a normal white blood cell count. CT examination read came back positive with osteomyelitis with concern for pathologic fracture in the distal phalanx of the thumb. It was also suspicious for a soft tissue abscess. No signs of any underlying bony abnormality to the right third digit though there is noticeable soft tissue swelling consistent with cellulitis. With this finding I did reach out to orthopedics here at [facility] and spoke with Dr. Sykes however, she indicated she would be deferring to a hand specialist for this patient. I then reached out to [facility] and spoke with Dr. Rosado. He was quite reluctant to take this patient on but, indicated he would reach out to the patient tomorrow for an appointment and would most likely need to perform a amputation on Sunday. He indicated that he thought it would be a better idea for the patient to stay local and have our orthopedic doctor perform the amputation however, as I have already spoken to our health and safety specialist and she indicated the need for hand specialist, we will pursue follow-up with [facility] at this time. [facility] orthopedic hand specialist had recommended attempting another abscess drainage however, as I have spoken to Dr. Palm regarding this case, as there is no palpable fluctuance under the skin and, attempted I&D has already been made without success, he recommended allowing a hand specialist or orthopedic doctor to complete the procedure in clinic or the OR. We had originally discussed IV vancomycin and Zosyn for this patient as well here in the emergency department but, as the hand specialist mentions an amputation of this area, Dr. Palm thought it appropriate to treat for concerns of a spreading soft tissue cellulitis and we provided oral doxycycline. She can continue her Keflex as well. All of this was discussed with the patient including the referral to [facility] orthopedics in [place] and the likelihood of a at least partial finger amputation. Patient indicated she thought it might come down to that and was willing to proceed with what ever treatment was necessary. I did provide her contact information for the orthopedic hand group at the orthopedic [facility] in [place] should she need any of that contact information going forward. Patient's wounds were cleaned here in the emergency department with Betadine and wrapped. Thumb was also covered with a finger guard to prevent accidental injury to the finger. Patient verbalizes understanding and agreement to treatment plan. Differential Diagnosis Likely cellulitis; Unlikely herpes zoster, gout, superficial thrombophlebitis or deep venous thrombosis of upper extremity Lab Data 03/04/23 20:15 03/04/23 20:[address] 03/04/23 19:48 IMPRESSION: 1. Osteomyelitis with a pathologic fracture in the thumb distal phalanx. This does not appear to involve the interphalangeal joint. 2. Findings suspicious for a 1.9 cm soft tissue abscess in the distal thumb. 3. Soft tissue swelling dorsal to the 4th proximal interphalangeal joint without a visible abscess. Laboratory Results WBC 10.49 10^3/uL (3.29-11.43) 03/04/23 20:15 RBC 4.46 10^6/uL (3.85-5.65) 03/04/23 20:15 Hgb 11.30 g/dL (11.27-16.99) 03/04/23 20:15 Hct 35.0 % (36-47) L 03/04/23 20:15 MCV 78.5 fl (85-98) L 03/04/23 20:15 MCH 25.3 pg (27-33) L 03/04/23 20:15 MCHC 32.3 g/dL (30-55) 03/04/23 20:15 RDW 14.0 % (12.1-15.1) 03/04/23 20:15 Plt Count 483 10^3/cmm (157-399) H 03/04/23 20:15 MPV 9.0 fL (7.4-10.4) 03/04/23 20:15 Neut % (Auto) 53.3 % 03/04/23 20:15 Lymph % (Auto) 33.6 % 03/04/23 20:15 Hart % (Auto) 9.4 % 03/04/23 20:15 Eos % (Auto) 2.3 % 03/04/23 20:15 Baso % (Auto) 0.9 % 03/04/23 20:15 Neut # (Auto) 5.60 10^3/uL (1.8-7.7) 03/04/23 20:15 Lymph # (Auto) 3.5 10^3/uL (0.8-4.8) 03/04/23 20:15 Hart # (Auto) 1.0 10^3/uL (0.2-0.9) H 03/04/23 20:15 Eos # (Auto) 0.2 10^3/uL (0.0-0.8) 03/04/23 20:15 Baso # (Auto) 0.1 10^3/uL (0.0-0.1) 03/04/23 20:15 Nucleated RBC % (auto) 0 % 03/04/23 20:15 Nucleated RBCs # 0.0 /100WBC 03/04/23 20:15 ESR 94 mm/hr (0-15) H 03/04/23 20:15 Sodium 138 mmol/L (136-145) 03/04/23 20:15 Potassium 3.8 mmol/L (3.5-5.1) 03/04/23 20:15 Chloride 98 mmol/L (98-107) 03/04/23 20:15 Carbon Dioxide 29 mmol/L (22-29) 03/04/23 20:15 Anion Gap 14.8 (5-19) 03/04/23 20:15 BUN 16 mg/dL (6-20) 03/04/23 20:15 Creatinine 0.7 mg/dL (0.5-0.9) 03/04/23 20:15 GFR Calculation 87.5 mL/min (90-130) L 03/04/23 20:15 Glucose 143 mg/dL (65-115) H 03/04/23 20:15 Calculated Osmolality 290 mOsm/kg (285-295) 03/04/23 20:15 Lactic Acid 2.0 mmol/L (0.5-2.2) 03/04/23 20:15 Calcium 9.7 mg/dL (8.5-10.5) 03/04/23 20:15 Total Bilirubin 0.2 mg/dL (0.15-1.2) 03/04/23 20:15 AST 11 U/L (0-32) 03/04/23 20:15 ALT 12 U/L (0-33) 03/04/23 20:15 Alkaline Phosphatase 118 U/L (35-105) H 03/04/23 20:15 C-Reactive Protein 32.7 mg/L (0.0-4.9) H 03/04/23 20:15 Total Protein 8.0 g/dL (6.6-8.7) 03/04/23 20:15 Albumin 3.9 g/dL (3.5-5.2) 03/04/23 20:15 Globulin 4.1 g/dL (1.3-4.6) 03/04/23 20:15 Procalcitonin 0.08 ng/mL (0-0.5) 03/04/23 20:15 All radiology interpretation(s) finalized by discharge Discharge Plan Discharge Patient Disposition: Home Clinical Impression: Diabetic neuropathy Cellulitis Qualifiers: Site of cellulitis: extremity Site of cellulitis of extremity: finger L aterality: right Qualified Code(s): L03.011 - Cellulitis of right finger Diabetes Qualifiers: Diabetes mellitus type: type 2 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 Diabetes mellitus complication status: with hyperglycemia Q ualified Code(s): E11.65 - Type 2 diabetes mellitus with hyperglycemia Condition: Stable Prescriptions: New doxycycline hyclate 100 mg capsule 100 mg PO BID 10 Days Qty: 20 0RF No Action melatonin 3 mg capsule 3 mg PO DAILY metformin 500 mg tablet 500 mg PO DAILY Qty: 60 5RF hydrochlorothiazide 12.5 mg tablet 12.5 mg PO DAILY PRN (Reason: ankle swelling) Qty: 30 3RF (DME) Dexcom G7 Bibliographic Services Specialist Misc See Rx Instructions .Route Qty: 1 1RF Rx Instructions: As directed hydrocodone-acetaminophen 10-325 mg tablet 1 tab PO .One to TID as needed PRN (Reason: pain) 30 Days Qty: 75 0RF cephalexin 750 mg capsule 750 mg PO BID Qty: 20 0RF albuterol sulfate [ProAir HFA] 90 mcg/actuation HFA aerosol inhaler 2 puff INHALATION QID PRN (Reason: shortness of breath or wheezing) 30 Days Qty: 18 11RF pregabalin 200 mg capsule 200 mg PO BID 90 Days Qty: 180 5RF (DME) pen needle, diabetic [Comfort EZ Pen [place]] 29 gauge x 1/2 needle See Rx Instructions .Route Qty: 100 3RF Rx Instructions: As directed atorvastatin 20 mg tablet See Rx Instructions .ROUTE .COMPLEX Qty: 90 1RF Dose Instruction: TAKE ONE TABLET BY MOUTH DAILY Rx Instructions: TAKE ONE TABLET BY MOUTH DAILY Humulin R U-500 (Conc) Kwikpen 500 unit/mL (3 mL) insulin pen See Rx Instructions .ROUTE .COMPLEX Qty: 6 5RF Dose Instruction: inject 50 units (0.1ml) SUBCUTANEOUSLY before meals THREE TIMES DAILY Rx Instructions: inject 50 units (0.1ml) SUBCUTANEOUSLY before meals THREE TIMES DAILY alprazolam 1 mg tablet 1 mg PO BID 30 Days Qty: 60 5RF (DME) Dexcom G7 Sensor Device See Rx Instructions .Route Qty: 9 1RF Rx Instructions: As directed fluticasone propionate 50 mcg/actuation spray,suspension See Rx Instructions .ROUTE .COMPLEX Qty: 16 5RF Dose Instruction: USE 2 SPRAYS IN EACH NOSTRIL EVERY DAY Rx Instructions: USE 2 SPRAYS IN EACH NOSTRIL EVERY DAY carisoprodol 350 mg tablet 350 mg PO ONCE 30 Days Qty: 30 5RF Discharge Orders: Discharge ED (Routine); Ordered 03/04/23 Ordered By: Kayla Louie Referrals: Bentley Elizabeth MD [Primary Care Provider] - Discharge Diet: Usual diet Discharge Activity: Limit activity as instructed Activity Restrictions/Additional Instructions: Lab work today shows no signs of sepsis. All lab work is stable. Examination of the soft tissue does show concerns for developing abscess of the thumb but, the radiologist also indicated concerns for damage to the underlying bone due to this infection. I spoke to the orthopedic doctor on-call here at [facility] who requested you be seen and evaluated by hand specialist. I therefore called the emergency orthopedic hand specialty and spoke with Dr. Rosado. Unfortunately, because of your underlying issues with diabetes and progression of the infection he is concerned that there is potential to require surgical removal of part of this finger. After speaking to him, they indicated they will be calling you tomorrow for a follow-up and to discuss the surgical intervention. We are starting you on oral antibiotics to prevent the soft tissue infection from spreading into your other fingers or hand but, will most likely require more definitive treatment for your thumb. Dr Rosado [facility]- hand specialist [address] [place] [address] [address] [place] [address] Coding Level of Care Code ED [facility] Mason for Chg Fwd Documented by User: Luis Palm, 03/05/23 20:02 HPI - Extremity Problem 2 General: Chief complaint: Extremity Problem,Nontraumatic Stated complaint: Rt Hand Finger Injury Time Seen by Provider: 03/04/23 18:47 PFS ED 2 PFS: Medical History Right ankle strain No pertinent family history Abnormal weight loss Encounter for screening mammogram for breast cancer Diabetic neuropathy Diabetes Anxiety Hypercholesteremia Chronic bilateral back pain Social History Smoking and tobacco/nicotine status: current every day tobacco/nicotine user Alcohol intake: never Substance/Drug Use: never Course 2 Vital Signs: Vital signs: Vital Signs Temperature 97.8 F 03/04/23 18:27 Pulse Rate 100 03/04/23 22:54 Respiratory Rate 17 03/04/23 18:27 Blood Pressure 113/54 03/04/23 18:27 Pulse Oximetry 96 03/04/23 22:54 Oxygen Delivery Me thod Room Air 03/04/23 18:27 MDM - Extremity (Nontraumatic) Medical Decision Making Given that the patient is already been on antibiotics now for approximately 4 to 5 days and had an attempted I&D that was unsuccessful, I did perform a CT examination of the hand to evaluate for soft tissue abscess and to evaluate for osteomyelitis. Lab work was obtained. However, lab work showed no acute abnormalities other than slightly elevated inflammatory markers. Lactic and procalcitonin were normal as well as a normal white blood cell count. CT examination read came back positive with osteomyelitis with concern for pathologic fracture in the distal phalanx of the thumb. It was also suspicious for a soft tissue abscess. No signs of any underlying bony abnormality to the right third digit though there is noticeable soft tissue swelling consistent with cellulitis. With this finding I did reach out to orthopedics here at [facility] and spoke with Dr. Sykes however, she indicated she would be deferring to a hand specialist for this patient. I then reached out to [facility] and spoke with Dr. Rosado. He was quite reluctant to take this patient on but, indicated he would reach out to the patient tomorrow for an appointment and would most likely need to perform a amputation on Sunday. He indicated that he thought it would be a better idea for the patient to stay local and have our orthopedic doctor perform the amputation however, as I have already spoken to our health and safety specialist and she indicated the need for hand specialist, we will pursue follow-up with [facility] at this time. [facility] specialist had recommended attempting another abscess drainage however, as I have spoken to Dr. Palm regarding this case, as there is no palpable fluctuance under the skin and, attempted I&D has already been made without success, he recommended allowing a hand specialist or orthopedic doctor to complete the procedure in clinic or the OR. We had originally discussed IV vancomycin and Zosyn for this patient as well here in the emergency department but, as the hand specialist mentions an amputation of this area, Dr. Palm thought it appropriate to treat for concerns of a spreading soft tissue cellulitis and we provided oral doxycycline. She can continue her Keflex as well. All of this was discussed with the patient including the referral to [facility] in [place] and the likelihood of a at least partial finger amputation. Patient indicated she thought it might come down to that and was willing to proceed with what ever treatment was necessary. I did provide her contact information for the orthopedic hand group at the orthopedic hospital in [place] should she need any of that contact information going forward. Patient's wounds were cleaned here in the emergency department with Betadine and wrapped. Thumb was also covered with a finger guard to prevent accidental injury to the finger. Patient verbalizes understanding and agreement to treatment plan. This patient was originally seen by Mrs. Liban PA-C. I agree with her history, evaluation, and treatment. Lab Data 03/04/23 20:15 03/04/23 20:[address] 03/04/23 19:48 IMPRESSION: 1. Osteomyelitis with a pathologic fracture in the thumb distal phalanx. This does not appear to involve the interphalangeal joint. 2. Findings suspicious for a 1.9 cm soft tissue abscess in the distal thumb. 3. Soft tissue swelling dorsal to the 4th proximal interphalangeal joint without a visible abscess. Laboratory Results WBC 10.49 10^3/uL (3.29-11.43) 03/04/23 20:15 RBC 4.46 10^6/uL (3.85-5.65) 03/04/23 20:15 Hgb 11.30 g/dL (11.27-16.99) 03/04/23 20:15 Hct 35.0 % (36-47) L 03/04/23 20:15 MCV 78.5 fl (85-98) L 03/04/23 20:15 MCH 25.3 pg (27-33) L 03/04/23 20:15 MCHC 32.3 g/dL (30-55) 03/04/23 20:15 RDW 14.0 % (12.1-15.1) 03/04/23 20:15 Plt Count 483 10^3/cmm (157-399) H 03/04/23 20:15 MPV 9.0 fL (7.4-10.4) 03/04/23 20:15 Neut % (Auto) 53.3 % 03/04/23 20:15 Lymph % (Auto) 33.6 % 03/04/23 20:15 Hart % (Auto) 9.4 % 03/04/23 20:15 Eos % (Auto) 2.3 % 03/04/23 20:15 Baso % (Auto) 0.9 % 03/04/23 20:15 Neut # (Auto) 5.60 10^3/uL (1.8-7.7) 03/04/23 20:15 Lymph # (Auto) 3.5 10^3/uL (0.8-4.8) 03/04/23 20:15 Hart # (Auto) 1.0 10^3/uL (0.2-0.9) H 03/04/23 20:15 Eos # (Auto) 0.2 10^3/uL (0.0-0.8) 03/04/23 20:15 Baso # (Auto) 0.1 10^3/uL (0.0-0.1) 03/04/23 20:15 Nucleated RBC % (auto) 0 % 03/04/23 20:15 Nucleated RBCs # 0.0 /100WBC 03/04/23 20:15 ESR 94 mm/hr (0-15) H 03/04/23 20:15 Sodium 138 mmol/L (136-145) 03/04/23 20:15 Potassium 3.8 mmol/L (3.5-5.1) 03/04/23 20:15 Chloride 98 mmol/L (98-107) 03/04/23 20:15 Carbon Dioxide 29 mmol/L (22-29) 03/04/23 20:15 Anion Gap 14.8 (5-19) 03/04/23 20:15 BUN 16 mg/dL (6-20) 03/04/23 20:15 Creatinine 0.7 mg/dL (0.5-0.9) 03/04/23 20:15 GFR Calculation 87.5 mL/min (90-130) L 03/04/23 20:15 Glucose 143 mg/dL (65-115) H 03/04/23 20:15 Calculated Osmolality 290 mOsm/kg (285-295) 03/04/23 20:15 Lactic Acid 2.0 mmol/L (0.5-2.2) 03/04/23 20:15 Calcium 9.7 mg/dL (8.5-10.5) 03/04/23 20:15 Total Bilirubin 0.2 mg/dL (0.15-1.2) 03/04/23 20:15 AST 11 U/L (0-32) 03/04/23 20:15 ALT 12 U/L (0-33) 03/04/23 20:15 Alkaline Phosphatase 118 U/L (35-105) H 03/04/23 20:15 C-Reactive Protein 32.7 mg/L (0.0-4.9) H 03/04/23 20:15 Total Protein 8.0 g/dL (6.6-8.7) 03/04/23 20:15 Albumin 3.9 g/dL (3.5-5.2) 03/04/23 20:15 Globulin 4.1 g/dL (1.3-4.6) 03/04/23 20:15 Procalcitonin 0.08 ng/mL (0-0.5) 03/04/23 20:15 Discharge Plan Discharge Patient Disposition: Home Clinical Impression: Diabetic neuropathy Cellulitis Qualifiers: Site of cellulitis: extremity Site of cellulitis of extremity: finger L aterality: right Qualified Code(s): L03.011 - Cellulitis of right finger Diabetes Qualifiers: Diabetes mellitus type: type 2 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 Diabetes mellitus complication status: with hyperglycemia Q ualified Code(s): E11.65 - Type 2 diabetes mellitus with hyperglycemia Condition: Stable Prescriptions: New doxycycline hyclate 100 mg capsule 100 mg PO BID 10 Days Qty: 20 0RF No Action melatonin 3 mg capsule 3 mg PO DAILY metformin 500 mg tablet 500 mg PO DAILY Qty: 60 5RF hydrochlorothiazide 12.5 mg tablet 12.5 mg PO DAILY PRN (Reason: ankle swelling) Qty: 30 3RF (DME) Dexcom G7 Bibliographic Services Specialist Misc See Rx Instructions .Route Qty: 1 1RF Rx Instructions: As directed hydrocodone-acetaminophen 10-325 mg tablet 1 tab PO .One to TID as needed PRN (Reason: pain) 30 Days Qty: 75 0RF cephalexin 750 mg capsule 750 mg PO BID Qty: 20 0RF albuterol sulfate [ProAir HFA] 90 mcg/actuation HFA aerosol inhaler 2 puff INHALATION QID PRN (Reason: shortness of breath or wheezing) 30 Days Qty: 18 11RF pregabalin 200 mg capsule 200 mg PO BID 90 Days Qty: 180 5RF (DME) pen needle, diabetic [Comfort EZ Pen [place]] 29 gauge x 1/2 needle See Rx Instructions .Route Qty: 100 3RF Rx Instructions: As directed atorvastatin 20 mg tablet See Rx Instructions .ROUTE .COMPLEX Qty: 90 1RF Dose Instruction: TAKE ONE TABLET BY MOUTH DAILY Rx Instructions: TAKE ONE TABLET BY MOUTH DAILY Humulin R U-500 (Conc) Kwikpen 500 unit/mL (3 mL) insulin pen See Rx Instructions .ROUTE .COMPLEX Qty: 6 5RF Dose Instruction: inject 50 units (0.1ml) SUBCUTANEOUSLY before meals THREE TIMES DAILY Rx Instructions: inject 50 units (0.1ml) SUBCUTANEOUSLY before meals THREE TIMES DAILY alprazolam 1 mg tablet 1 mg PO BID 30 Days Qty: 60 5RF (DME) Dexcom G7 Sensor Device See Rx Instructions .Route Qty: 9 1RF Rx Instructions: As directed fluticasone propionate 50 mcg/actuation spray,suspension See Rx Instructions .ROUTE .COMPLEX Qty: 16 5RF Dose Instruction: USE 2 SPRAYS IN EACH NOSTRIL EVERY DAY Rx Instructions: USE 2 SPRAYS IN EACH NOSTRIL EVERY DAY carisoprodol 350 mg tablet 350 mg PO ONCE 30 Days Qty: 30 5RF Discharge Orders: Discharge ED (Routine); Ordered 03/04/23 Ordered By: Kayla Louie Referrals: Bentley Elizabeth MD [Primary Care Provider] - Discharge Diet: Usual diet Discharge Activity: Limit activity as instructed Activity Restrictions/Additional Instructions: Lab work today shows no signs of sepsis. All lab work is stable. Examination of the soft tissue does show concerns for developing abscess of the thumb but, the radiologist also indicated concerns for damage to the underlying bone due to this infection. I spoke to the orthopedic doctor on-call here at [facility] who requested you be seen and evaluated by hand specialist. I therefore called the emergency orthopedic hand specialty and spoke with Dr. Rosado. Unfortunately, because of your underlying issues with diabetes and progression of the infection he is concerned that there is potential to require surgical removal of part of this finger. After speaking to him, they indicated they will be calling you tomorrow for a follow-up and to discuss the surgical intervention. We are starting you on oral antibiotics to prevent the soft tissue infection from spreading into your other fingers or hand but, will most likely require more definitive treatment for your thumb. Dr [facility] [address] [facility] [address] [place] [address] Coding Level of Care Code ED [facility] [place] Mason for Karina Isidro
[2023-03-04] MEDS: iohexol 350 mg/mL 500 mL Btl (per mL) IV (20:23)
[2023-03-04 20:30] LABS: Basophils # 0.1 10^3/uL (0.0-0.1); Basophils % 0.9 %; Eosinophils # 0.2 10^3/uL (0.0-0.8); Eosinophils % 2.3 %; Lymphocytes # 3.5 10^3/uL (0.8-4.8); Lymphocytes % 33.6 %; Mean Corpuscular HGB Conc 32.3 g/dL (30-55); Mean Corpuscular Hemoglobin 25.3 pg (27-33); Mean Corpuscular Volume 78.5 fl (85-98); Monocytes % 9.4 %; Neutrophils % 53.3 %; Nucleated Red Blood Cells % 0 %; Platelet Count 483 10^3/cmm (157-399); Red Blood Count 4.46 10^6/uL (3.85-5.65); White Blood Count 10.49 10^3/uL (3.29-11.43)
[2023-03-04 20:44] LABS: Alanine Aminotransferase 12 U/L (0-33); Albumin Level 3.9 g/dL (3.5-5.2); Alkaline Phosphatase 118 U/L (35-105); Anion Gap 14.8 (5-19); Aspartate Amino Transferase 11 U/L (0-32); Blood Urea Nitrogen 16 mg/dL (6-20); C Reactive Protein 32.7 mg/L (0.0-4.9); Calcium 9.7 mg/dL (8.5-10.5); Carbon Dioxide 29 mmol/L (22-29); Chloride 98 mmol/L (98-107); Globulin 4.1 g/dL (1.3-4.6); Glomerular Filtration Rate 87.5 mL/min (90-130); Glucose 143 mg/dL (65-115); Osmolality Calculated 290 mOsm/kg (285-295); Potassium 3.8 mmol/L (3.5-5.1); Sodium 138 mmol/L (136-145); Total Bilirubin 0.2 mg/dL (0.15-1.2)
[2023-03-04 20:50] LABS: Erythrocyte Sedimentation Rate 94 mm/hr (0-15)
[2023-03-04 20:51] LABS: Procalcitonin 0.08 ng/mL (0-0.5)
[2023-03-04] MEDS: doxycycline 100 mg Tablet PO (22:50)
[2023-03-04 22:54] VITALS: PULSE 100; O2SAT 96
== END 2023-03-04 22:55 | disposition home or self-care (01) ==
PROVIDERS: Emergency Provider Physician Assistant; PCP Family Medicine
DX: L03.011 Cellulitis of right finger (principal); E11.65 Type 2 diabetes mellitus with hyperglycemia; E11.40 Type 2 diabetes mellitus with diabetic neuropathy, unspecified; Z79.4 Long term (current) use of insulin; Z79.84 Long term (current) use of oral hypoglycemic drugs; Z72.0 Tobacco use
CPT/HCPCS: 36415; 73201; 80053; 83605; 84145; 85025; 85651; 86140; 87040; 99285; Q9967

== ENCOUNTER 2023-04-26 11:57 | Outpatient (CLI) | payer BC, MEDICAID, SELFPAY ==
--- NOTE | 2023-04-26 12:15 | MR_ITS ---
WS: [id number] MRI RIGHT ANKLE WITHOUT CONTRAST. COMPARISON: Radiograph 02/07/2023 Multiplanar, multisequence imaging is performed without contrast. History: Pain, prior trauma. No acute fracture. There is increased marrow edema signal in the anterior talar process and also in t he very posterior talus. The distal fibula and the tibia are intact. The ATFL is intact with normal s ignal. Calcaneofibular ligament is normal. There is increased fluid signal in the sinus Tarsi. There is partial interruption of the normal cervi placido ligament in the sinus Tarsi. The inferior extensor retinaculum is poorly visualized but probably intact. Within the deep sinus Tarsi there is fluid with no continuity of the cervical ligaments. The extensor and flexor tendons are normal. The Achilles tendon is normal. IMPRESSION: 1. Subtle areas of marrow edema in the anterior and posterior talus. No fractures. 2. No joint effusion. 3. There is a very small amount of fluid in the sinus Tarsi with interruption of the cervical ligame nt continuity. Suspect partial tear of the cervical ligament. 4. Anterior talofibular ligament appears intact.
== END 2023-04-26 11:58 | disposition home or self-care (01) ==
LOC: RAD 11:57
PROVIDERS: PCP Family Medicine; Visit Provider Podiatrist Foot & Ankle Surgery
DX: M95.8 Other specified acquired deformities of musculoskeletal system (principal); R93.6 Abnormal findings on diagnostic imaging of limbs
CPT/HCPCS: 73721

== ENCOUNTER 2023-06-04 14:53 | Outpatient (CLI) | payer BC, MEDICAID, SELFPAY ==
--- NOTE | 2023-06-04 15:30 | USCV_ITS ---
Hannah Gardner Age: 52 Gender: F : 1970 Exam Date: 06/04/2023 14:59 Ordering Phys: Marco Garcia DPM Technologist: CT Exam Location: [facility] – [place] Indication: PROCEDURES: The venous duplex Doppler examination of both lower extremities was performed in the standard fashion. In addition, the posterior tibial and peroneal trunk were evaluated. Bilaterally, the common femoral, superficial femoral, profunda femoral, popliteal, posterior tibial, greater saphenous veins, and the peroneal trunk were identified and interrogated in the standard fashion. These veins were found to be easily compressible with spontaneous blood flow. No evidence of insufficiency or thrombus noted. FINDINGS: no dvt CONCLUSIONS No evidence of right lower extremity DVT. No evidence of left lower extremity DVT. Ibrahima Muro MD (Electronically Signed) Final Date: 04 June 2023 16:05 S
== END 2023-06-04 14:54 | disposition home or self-care (01) ==
LOC: RAD 14:54
PROVIDERS: PCP Family Medicine; Visit Provider Podiatrist Foot & Ankle Surgery
DX: I83.90 Asymptomatic varicose veins of unspecified lower extremity (principal)
CPT/HCPCS: 93970

== ENCOUNTER → 2023-08-02 10:50 | Outpatient (BNVA) | payer BC, MEDICAID, SELFPAY | PROVIDERS: PCP Family Medicine; Visit Provider Family Medicine | DX: E11.65 Type 2 diabetes mellitus with hyperglycemia (principal); Z79.4 Long term (current) use of insulin; E78.00 Pure hypercholesterolemia, unspecified | CPT/HCPCS: 80053; 80061; 83036; 83721 ==

== ENCOUNTER → 2023-11-12 09:49 | Outpatient (BNVA) | payer BC, MEDICAID, SELFPAY | PROVIDERS: PCP Family Medicine; Visit Provider Family Medicine | DX: Z79.4 Long term (current) use of insulin (principal); E11.65 Type 2 diabetes mellitus with hyperglycemia | CPT/HCPCS: 80053; 83036 ==

== ENCOUNTER → 2024-03-05 13:09 | Outpatient (BNVA) | payer BC, MEDICAID, SELFPAY | PROVIDERS: PCP Family Medicine; Visit Provider Family Medicine | DX: E11.65 Type 2 diabetes mellitus with hyperglycemia (principal); Z79.4 Long term (current) use of insulin; E10.42 Type 1 diabetes mellitus with diabetic polyneuropathy | CPT/HCPCS: 80053; 83036; 85025 ==

== ENCOUNTER 2024-03-16 12:36 | Emergency (ER) | payer BC, MEDICAID, SELFPAY ==
--- NOTE | 2024-03-16 12:37 | XRR_ITS ---
PROCEDURE INFORMATION: Exam: XR Left Ankle Exam date and time: 03/16/2024 12:45 PM Age: 53 years old Clinical indication: Ankle and foot; Left; Patient HX: Lt ankle pain/swelling/bruising post fall TECHNIQUE: Imaging protocol: Radiologic exam of the left ankle. Views: 3 or more views. COMPARISON: CR XR foot LT min 3V* [id number] 03/16/2024 12:45 PM FINDINGS: Bones/joints: Acute displaced Fernández B lateral malleolar fracture. Age-indeterminate subtle avulsive injury of the inferior tip of the medial malleolus, possibly chronic. Posterior malleolus is grossly intact. Soft tissues: Prominent soft tissue edema. XR/XR ankle LT min 3V* [id number] IMPRESSION: 1. Acute displaced Fernández B lateral malleolar fracture.
--- NOTE | 2024-03-16 12:37 | XRR_ITS ---
PROCEDURE INFORMATION: Exam: XR Left Foot Exam date and time: 03/16/2024 12:45 PM Age: 53 years old Clinical indication: Ankle and foot; Left; Patient HX: Lt ankle pain/swelling/bruising post fall TECHNIQUE: Imaging protocol: Radiologic exam of the left foot. Views: 3 or more views. COMPARISON: CR XR ankle LT min 3V* [id number] 03/16/2024 12:45 PM FINDINGS: Bones/joints: No evidence of acute fracture or subluxation of the left foot. Lateral malleolar fracture noted. Tarsometatarsal alignment is maintained. Small plantar calcaneal spur. If there is concern for plantar fascial pathology, follow-up outpatient MRI may be helpful. Soft tissues: Soft tissue edema of the hindfoot. XR/XR foot LT min 3V* [id number] IMPRESSION: 1. No evidence of acute fracture or subluxation of the left foot.
[2024-03-16 12:41] VITALS: BP 104/77; PULSE 115; RESP 16; TEMP 36.8; O2SAT 99; BMI 20.2
--- NOTE | 2024-03-16 13:03 | XRR_ITS ---
PROCEDURE INFORMATION: Exam: XR Left Tibia and Fibula Exam date and time: 03/16/2024 1:19 PM Age: 53 years old Clinical indication: Left; Patient HX: Lt distal fibula FX; Lt lower leg pain TECHNIQUE: Imaging protocol: Radiologic exam of the left tibia and fibula. Views: 2 views. COMPARISON: CR XR ankle LT min 3V* [id number] 03/16/2024 12:45 PM FINDINGS: Bones/joints: Proximal-mid tib fib is intact. Acute displaced Fernández B lateral malleolar fracture. Questionable subtle acute nondisplaced posterior malleolar fracture. Age-indeterminate subtle avulsive injury of the inferior tip of the medial malleolus, possibly chronic. Soft tissues: Soft tissue edema of the ankle. XR/XR tibia fibula LT 2V [id number] IMPRESSION: 1. Acute displaced Fernández B lateral malleolar fracture. 2. Questionable subtle acute nondisplaced posterior malleolar fracture.
--- NOTE | 2024-03-16 13:12 | XRR_ITS ---
PROCEDURE INFORMATION: Exam: XR Chest Exam date and time: 03/16/2024 1:19 PM Age: 53 years old Clinical indication: Cough; Patient HX: SOB; Congestion; Syncope; Lt distal fibula FX; Lt lower leg pain TECHNIQUE: Imaging protocol: Radiologic exam of the chest. Views: 2 views. COMPARISON: No relevant prior studies available. FINDINGS: Lungs: No focal consolidation. Pleural spaces: No evidence of pneumothorax. No evidence of pleural effusion. Heart/Mediastinum: Cardiomediastinal silhouette is within normal limits. Bones/joints: No evidence of acute osseous abnormality. XR/XR chest 2V* [id number] IMPRESSION: 1. No acute cardiopulmonary abnormality.
--- NOTE | 2024-03-16 13:16 | ECG_ITS ---
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 [id number]
--- NOTE | 2024-03-16 13:49 | ED_ITS ---
HPI - Extremity Problem General: Chief complaint: Extremity Injury, Lower Stated complaint: L. foot injury Time Seen by Provider: 03/16/24 13:02 History of Present Illness: Hannah Gardner is a 53-year-old female that presents to the emergency department with complaints of left ankle pain. Patient reports on the and , patient has had numerous syncopal episodes. She also reports respiratory infection with a productive cough. Patient states the falls were witnessed. Per her report, her has been witnessed her having a syncopal episode. Patient is only complaining of lateral left ankle pain. There is ecchymosis swelling and tenderness. She is neurovascularly intact Related Data Home Medications Medication Instructions Recorded Confirmed melatonin 3 mg capsule 3 mg PO DAILY 06/14/20 03/16/24 albuterol sulfate 90 mcg/actuation 2 inh inhalation QID PRN Shortness 03/16/24 03/16/24 breath activated powder inhaler Of Breath atorvastatin 20 mg tablet 20 mg PO DAILY 03/16/24 03/16/24 fluticasone propionate 50 2 spray intranasal DAILY 03/16/24 03/16/24 mcg/actuation nasal spray,suspension hydrochlorothiazide 12.5 mg tablet 12.5 mg PO DAILY 03/16/24 03/16/24 insulin aspart U-100 100 unit/mL 6 unit SUBCUT TID 03/16/24 03/16/24 (3 mL) subcutaneous pen insulin glargine 100 unit/mL (3 20 unit SUBCUT DAILY 03/16/24 03/16/24 mL) subcutaneous pen (Lantus Solostar U-100 Insulin) Previous Rx's Medication Instructions Recorded metformin 500 mg tablet 500 mg PO DAILY #60 tabs 02/05/23 blood-glucose meter,continuous #1 ea 05/25/23 (Dexcom G7 Ratchet Setter) carisoprodol 350 mg tablet 350 mg PO ONCE 30 days #30 tabs 09/04/23 blood-glucose sensor (Dexcom G7 #9 ea 10/22/23 Sensor device) pregabalin 200 mg capsule 200 mg PO BID 90 days #180 caps 11/09/23 vitamin no.167-folic acid 1 tab PO DAILY periph 01/09/24 400 mcg-dha 25 mg chewable tablet neuropathy/vit b and e defic #90 (One-A-Day ) tabs alprazolam 1 mg tablet 1 mg PO BID 30 days #60 tabs 01/21/24 hydrocodone 10 mg-acetaminophen 1 tab PO .One to TID as needed PRN 02/25/24 325 mg tablet pain 30 days #75 tabs cephalexin 500 mg capsule 500 mg PO Q8H #60 caps 03/05/24 insulin pump cart,auto,BT,G6/7 #10 ea 03/07/24 (Omnipod 5 G6-G7 Pods (Gen 5) subcutaneous cartridge) insulin pump cartridge,auto #1 ea 03/07/24 dose,BT,G6/G7 with controller subcutaneous (Omnipod 5 G6-G7 Intro Kit(Gen 5) subcutaneous cartridge and controller) pen needle, diabetic 32 gauge x #100 ea 03/07/24 (Pentips Pen Needle) Allergies Allergy/AdvReac Type Severity Reaction Status Date / Time No Known Allergies Allergy Verified 03/16/24 12:44 Review of Systems General: Reports: 10 or more systems reviewed and unremarkable except in HPI and below PFSH ED PFSH: Medical History Right ankle strain No pertinent family history Abnormal weight loss Encounter for screening mammogram for breast cancer Diabetic neuropathy Diabetes Anxiety Hypercholesteremia Chronic bilateral back pain Social History Smoking and tobacco/nicotine status: never used tobacco/nicotine Alcohol intake: never Substance/Drug Use: never Physical Exam Const: COMMON NORMALS: no acute distress, patient oriented x3 and alert GENERAL APPEARANCE: cooperative ORIENTATION/CONSCIOUSNESS: Yes awake, Yes oriented to person, Yes oriented to place and Yes oriented to time HENMT: COMMON NORMALS: normocephalic and atraumatic HEAD & SCALP: normocephalic and atraumatic FACE & SINUS: normal facial exam MOUTH: Normal oral and palatal mucosa present THROAT: posterior oropharynx normal Eye: COMMON NORMALS: Equal, round and reactive pupils present, EOMs intact bilaterally, conjunctivae normal and no scleral icterus GENERAL EYE: appearance normal, both eyes and all related structures ALIGNMENT: Yes alignment normal PERIORBITAL: periorbital findings normal CONJUNCTIVA: Yes conjunctivae normal PUPIL: Yes Equal, round and reactive pupils present Neck/C-Spine: COMMON NORMALS: full ROM GENERAL: Yes normal visual inspection Lymph: LYMPHATIC: no lymphadenopathy noted Chest: COMMONS NORMALS: normal inspection of the chest Breast/axilla inspection: Yes no chest deformity, asymmetry, normal contours, no nodules, masses, tenderness Resp: COMMON NORMALS: normal respiratory effort, No retractions, No use of accessory muscles and clear to auscultation bilaterally EFFORT & INSPECTION: Yes able to speak in complete sentences and Yes symmetric chest movement AUSCULTATION: clear to auscultation bilaterally Cardio: COMMON NORMALS: regular rate, regular rhythm and Peripheral pulses 2+ throughout RATE: regular rate RHYTHM: regular rhythm PERIPHERAL PULSES: Peripheral pulses 2+ throughout GI: COMMON NORMALS: Normal to inspection, nondistended, normoactive bowel sounds present, Soft to palpation, non-tender and No hepatosplenomegaly present INSPECTION: Yes normal to inspection AUSCULTATION: Yes normoactive bowel sounds PALPATION: Yes Soft to palpation and Yes No hepatosplenomegaly present RECTAL EXAM: deferred Extremity: COMMON NORMALS: normal to inspection GENERAL: Yes normal exam except as noted Neuro: COMMON NORMALS: patient oriented x3 SENSORIUM/ORIENTATION: Yes alert, Yes oriented to person, Yes oriented to place and Yes oriented to time CRANIAL NERVES: Yes CN normal except as noted Psych: COMMON NORMALS: mental status grossly normal, Normal thought process present, cooperative, activity/motor behavior normal, denies homicidal ideation and denies suicidal ideation THOUGHT PROCESS: Normal thought process present Skin: COMMON NORMALS: no rashes or lesions noted, no wounds and turgor normal GENERAL SKIN EXAM: no rashes or lesions noted and turgor normal Course Vital Signs: Vital signs: Vital Signs Temperature 98.2 F 03/16/24 12:41 Pulse Rate 111 H 03/16/24 15:09 Respiratory Rate 16 03/16/24 12:41 Blood Pressure 145/96 03/16/24 15:09 Pulse Oximetry 96 03/16/24 15:09 Oxygen Delivery Me thod Room Air 03/16/24 12:41 MDM - Extremity (Nontraumatic) Medical Decision Making Patient is a 53-year-old female that presents to the emergency department with left ankle pain. On evaluation it was noted that the patient had several sy ncopal episodes on the and of this month. She states she does not recall the events. But during one of the falls/syncope, she injured her left ankle. She underwent x-ray imaging of the foot and ankle which revealed an acute mildly displaced lateral malleolus fracture. There is question of posterior malleolus fracture but no significant displacement. The XR tibia was otherwise unremarkable. I also obtained an EKG due to reports of syncope. It reveals sinus tachycardia at a rate of 105. No ectopy, ST elevation or abnormal T wave inversion. The EKG was reviewed by Dr Kapadia. Patient was placed in posterior short leg splint. Crutches were provided and crutch training was performed. Referral to Dr. Irvin sent. COVID testing was initiated and pending at this time. Lab Data Radiology Impressions Ankle X-Ray 03/16/24 12:37 IMPRESSION: 1. Acute displaced Fernández B lateral malleolar fracture. Foot X-Ray 03/16/24 12:37 IMPRESSION: 1. No evidence of acute fracture or subluxation of the left foot. Tibia/Fibula X-Ray 03/16/24 13:03 IMPRESSION: 1. Acute displaced Fernández B lateral malleolar fracture. 2. Questionable subtle acute nondisplaced posterior malleolar fracture. Chest X-Ray 03/16/24 13:12 IMPRESSION: 1. No acute cardiopulmonary abnormality. Laboratory Results Coronavirus (PCR) Negative (Negative) 03/16/24 13:40 Influenza A (PCR) Negative (Negative) 03/16/24 13:40 Influenza Type B (PCR) Negative (Negative) 03/16/24 13:40 RSV (PCR) Negative (Negative) 03/16/24 13:40 All radiology interpretation(s) finalized by discharge Discharge Plan Discharge Patient Disposition: Home Clinical Impression: Ankle fracture, Acute dehydration Condition: Stable Prescriptions: No Action melatonin 3 mg capsule 3 mg PO DAILY metformin 500 mg tablet 500 mg PO DAILY Qty: 60 5RF One-A-Day 400 mcg- 25 mg tablet,chewable 1 tab PO DAILY Qty: 90 3RF (DME) Omnipod 5 G6-G7 Intro Kt(Gen5) Cartridge See Rx Instructions .Route Qty: 1 0RF Rx Instructions: As directed (DME) Omnipod 5 G6-G7 Pods (Gen 5) Cartridge See Rx Instructions .Route Qty: 10 3RF Rx Instructions: change pod every 3 days cephalexin 500 mg capsule 500 mg PO Q8H Qty: 60 0RF (DME) Dexcom G7 Ratchet Setter Misc See Rx Instructions .ROUTE .COMPLEX Qty: 1 1RF Dose Instruction: USE DIRECTED Rx Instructions: USE DIRECTED carisoprodol 350 mg tablet 350 mg PO ONCE 30 Days Qty: 30 5RF (DME) Dexcom G7 Sensor Device See Rx Instructions .ROUTE .COMPLEX Qty: 9 1RF Dose Instruction: USE DIRECTED Rx Instructions: USE DIRECTED pregabalin 200 mg capsule 200 mg PO BID 90 Days Qty: 180 1RF alprazolam 1 mg tablet 1 mg PO BID 30 Days Qty: 60 5RF hydrocodone-acetaminophen 10-325 mg tablet 1 tab PO .One to TID as needed PRN (Reason: pain) 30 Days Qty: 75 0RF (DME) pen needle, diabetic [Pentips Pen Needle] 32 gauge x 5/32 needle See Rx Instructions .ROUTE .COMPLEX Qty: 100 3RF Dose Instruction: USE DIRECTED Rx Instructions: USE DIRECTED albuterol sulfate 90 mcg/actuation Aerosol Powdr Breath Activated 2 inh INHALATION QID PRN (Reason: Shortness Of Breath) atorvastatin 20 mg tablet 20 mg PO DAILY Rx Instructions: TAKE ONE TABLET BY MOUTH DAILY fluticasone propionate 50 mcg/actuation spray,suspension 2 spray intranasal DAILY Rx Instructions: USE 2 SPRAYS IN EACH NOSTRIL EVERY DAY insulin aspart U-100 100 unit/mL (3 mL) insulin pen 6 unit SUBCUT TID Rx Instructions: inject SIX units (0.06ml) SUBCUTANEOUSLY THREE TIMES DAILY hydrochlorothiazide 12.5 mg tablet 12.5 mg PO DAILY Rx Instructions: TAKE ONE TABLET BY MOUTH DAILY NEEDED FOR ankle swelling insulin glargine [Lantus Solostar U-100 Insulin] 100 unit/mL (3 mL) insulin pen 20 unit SUBCUT DAILY Rx Instructions: inject 20 units (0.2ml) SUBCUTANEOUSLY EVERY DAY Discharge Orders: Discharge ED (Routine); Ordered 03/16/24 Ordered By: Siddharth Kapadia Referrals: Bentley Elizabeth MD [Primary Care Provider] - Filiberto Irvin DO [Physician] - 4-7 days (Lateral malleolus fracture, questionable posterior malleolus fracture. Patient is short leg splint, nonweightbearing and given crutches) Discharge Diet: Advance as tolerated Discharge Activity: Limit activity as instructed Patient Instructions: Ankle Fracture (DC), Splint Care (ED), Opioid Safety, Pain Management Activity Restrictions/Additional Instructions: Please remain nonweightbearing on the left extremity. Keep the extremity elevated and use ice as needed. Drink at least 60 oz of clear fluids daily and make sure you are eating 3 meals per day! 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
[2024-03-16 14:38] LABS: Covid PCR NEGATIVE (Negative); Influenza A NEGATIVE (Negative); Influenza B NEGATIVE (Negative); Respiratory Syncytial Virus Ce NEGATIVE (Negative)
--- NOTE | 2024-03-16 14:40 | ED_ITS ---
HPI - Extremity Problem General: Chief complaint: Extremity Injury, Lower Stated complaint: L. foot injury Time Seen by Provider: 03/16/24 13:02 History of Present Illness: Patient was originally seen by nurse practitioner. I took over for the nurse practitioner: Patient reports she rolled her left ankle on March 13. She believes it is broken but she has been able to bear partial weight. Reports she has had a cough and fatigue as well. Patient reports she is dehydrated because she has been relying on other people to bring her food and drink since her ankle has been injured. Related Data Home Medications Medication Instructions Recorded Confirmed melatonin 3 mg capsule 3 mg PO DAILY 06/14/20 03/16/24 albuterol sulfate 90 mcg/actuation 2 inh inhalation QID PRN Shortness 03/16/24 03/16/24 breath activated powder inhaler Of Breath atorvastatin 20 mg tablet 20 mg PO DAILY 03/16/24 03/16/24 fluticasone propionate 50 2 spray intranasal DAILY 03/16/24 03/16/24 mcg/actuation nasal spray,suspension hydrochlorothiazide 12.5 mg tablet 12.5 mg PO DAILY 03/16/24 03/16/24 insulin aspart U-100 100 unit/mL 6 unit SUBCUT TID 03/16/24 03/16/24 (3 mL) subcutaneous pen insulin glargine 100 unit/mL (3 20 unit SUBCUT DAILY 03/16/24 03/16/24 mL) subcutaneous pen (Lantus Solostar U-100 Insulin) Previous Rx's Medication Instructions Recorded metformin 500 mg tablet 500 mg PO DAILY #60 tabs 02/05/23 blood-glucose meter,continuous #1 ea 05/25/23 (Dexcom G7 [employer]) carisoprodol 350 mg tablet 350 mg PO ONCE 30 days #30 tabs 09/04/23 blood-glucose sensor (Dexcom G7 #9 ea 10/22/23 Sensor device) pregabalin 200 mg capsule 200 mg PO BID 90 days #180 caps 11/09/23 vitamin no.167-folic acid 1 tab PO DAILY periph 01/09/24 400 mcg-dha 25 mg chewable tablet neuropathy/vit b and e defic #90 (One-A-Day ) tabs alprazolam 1 mg tablet 1 mg PO BID 30 days #60 tabs 01/21/24 hydrocodone 10 mg-acetaminophen 1 tab PO .One to TID as needed PRN 02/25/24 325 mg tablet pain 30 days #75 tabs cephalexin 500 mg capsule 500 mg PO Q8H #60 caps 03/05/24 insulin pump cart,auto,BT,G6/7 #10 ea 03/07/24 (Omnipod 5 G6-G7 Pods (Gen 5) subcutaneous cartridge) insulin pump cartridge,auto #1 ea 03/07/24 dose,BT,G6/G7 with controller subcutaneous (Omnipod 5 G6-G7 Intro Kit(Gen 5) subcutaneous cartridge and controller) pen needle, diabetic 32 gauge x #100 ea 03/07/24 (Pentips Pen Needle) Allergies Allergy/AdvReac Type Severity Reaction Status Date / Time No Known Allergies Allergy Verified 03/16/24 12:44 Review of Systems General: Reports: 10 or more systems reviewed and unremarkable except in HPI and below Narrative: Fatigue, cough, left ankle pain, bruising going down into the foot, dehydration, ambulatory dysfunction. PFSH ED PFSH: Medical History Right ankle strain No pertinent family history Abnormal weight loss Encounter for screening mammogram for breast cancer Diabetic neuropathy Diabetes Anxiety Hypercholesteremia Chronic bilateral back pain Social History Smoking and tobacco/nicotine status: never used tobacco/nicotine Alcohol intake: never Substance/Drug Use: never Physical Exam 2 Narrative: EXAM NARRATIVE: Tenderness to the left ankle lateral malleolus. No tenderness of the proximal tibia or fibula. There is dependent bruising moving through the fascial planes. DP pulses 2+. No tenderness of the fifth metatarsal. No knee tenderness. Tachycardia present. Poor skin turgor. Const: COMMON NORMALS: no limitations, alert and well nourished EXAM LIMITATIONS: no altered mental status HENMT: COMMON NORMALS: normocephalic, atraumatic and external ears normal HEAD & SCALP: normocephalic and atraumatic EXTERNAL EAR: Yes external ears normal MOUTH: no muffled voice Eye: COMMON NORMALS: conjunctivae normal and no scleral icterus CONJUNCTIVA: Yes conjunctivae normal Neck/C-Spine: GENERAL: Yes normal visual inspection and Yes trachea midline Resp: COMMON NORMALS: normal respiratory effort and No use of accessory muscles GI: COMMON NORMALS: Soft to palpation and non-tender PALPATION: Yes Soft to palpation and No Guarding due to palpation present (GI) Neuro: COMMON NORMALS: moves all extremities, no focal motor deficits and no sensory deficits noted SENSORIUM/ORIENTATION: Yes alert SPEECH: speech normal Psych: COMMON NORMALS: mental status grossly normal, Normal thought process present, cooperative, normal affect and speech normal SPEECH: Yes normal speech THOUGHT PROCESS: Normal thought process present Skin: COMMON NORMALS: no rashes or lesions noted and no jaundice GENERAL SKIN EXAM: no rashes or lesions noted Course Vital Signs: Vital signs: Vital Signs Temperature 98.2 F 03/16/24 12:41 Pulse Rate 115 H 03/16/24 12:41 Respiratory Rate 16 03/16/24 12:41 Blood Pressure 104/77 03/16/24 12:41 Pulse Oximetry 99 03/16/24 12:41 Oxygen Delivery Me thod Room Air 03/16/24 12:41 MDM - Extremity (Nontraumatic) Medical Decision Making I took over for patient jail through her workup. She has a neurovascularly intact Fernández B left lateral malleolus fracture. There is possible involvement of the posterior malleolus . Discussed with orthopedic surgeon, Dr Irvin, who recommends splinting, nonweightbearing and outpatient follow-up. Patient reported to me that she x-ray had a syncopal spell which resulted in her ankle injury on March 13. I look back through her chart and she does have multiple comorbidities including diabetes, hyponatremia, and multiple others. I discussed with patient whether she would allow me to do lab work, IV hydration and further workup. Patient declined. She says that she will increase her p.o. intake. Patient does have medical decision-making capacity and does not want to do any further workup. She is here along with family member who is also present for the conversation. Patient invited to return should her symptoms worsen or return. Patient reportedly had been having fatigue, cough, poor po intake. 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 CXR neg. Lab Data Radiology Impressions Ankle X-Ray 03/16/24 12:37 IMPRESSION: 1. Acute displaced Fernández B lateral malleolar fracture. Foot X-Ray 03/16/24 12:37 IMPRESSION: 1. No evidence of acute fracture or subluxation of the left foot. Tibia/Fibula X-Ray 03/16/24 13:03 IMPRESSION: 1. Acute displaced Fernández B lateral malleolar fracture. 2. Questionable subtle acute nondisplaced posterior malleolar fracture. Chest X-Ray 03/16/24 13:12 IMPRESSION: 1. No acute cardiopulmonary abnormality. Laboratory Results Coronavirus (PCR) Negative (Negative) 03/16/24 13:40 Influenza A (PCR) Negative (Negative) 03/16/24 13:40 Influenza Type B (PCR) Negative (Negative) 03/16/24 13:40 RSV (PCR) Negative (Negative) 03/16/24 13:40 All radiology interpretation(s) finalized by discharge Discharge Plan Discharge Patient Disposition: Home Clinical Impression: Ankle fracture, Acute dehydration Condition: Stable Prescriptions: No Action melatonin 3 mg capsule 3 mg PO DAILY metformin 500 mg tablet 500 mg PO DAILY Qty: 60 5RF One-A-Day 400 mcg- 25 mg tablet,chewable 1 tab PO DAILY Qty: 90 3RF (DME) Omnipod 5 G6-G7 Intro Kt(Gen5) Cartridge See Rx Instructions .Route Qty: 1 0RF Rx Instructions: As directed (DME) Omnipod 5 G6-G7 Pods (Gen 5) Cartridge See Rx Instructions .Route Qty: 10 3RF Rx Instructions: change pod every 3 days cephalexin 500 mg capsule 500 mg PO Q8H Qty: 60 0RF (DME) Dexcom G7 [employer] Misc See Rx Instructions .ROUTE .COMPLEX Qty: 1 1RF Dose Instruction: USE DIRECTED Rx Instructions: USE DIRECTED carisoprodol 350 mg tablet 350 mg PO ONCE 30 Days Qty: 30 5RF (DME) Dexcom G7 Sensor Device See Rx Instructions .ROUTE .COMPLEX Qty: 9 1RF Dose Instruction: USE DIRECTED Rx Instructions: USE DIRECTED pregabalin 200 mg capsule 200 mg PO BID 90 Days Qty: 180 1RF alprazolam 1 mg tablet 1 mg PO BID 30 Days Qty: 60 5RF hydrocodone-acetaminophen 10-325 mg tablet 1 tab PO .One to TID as needed PRN (Reason: pain) 30 Days Qty: 75 0RF (DME) pen needle, diabetic [Pentips Pen Needle] 32 gauge x 5/32 needle See Rx Instructions .ROUTE .COMPLEX Qty: 100 3RF Dose Instruction: USE DIRECTED Rx Instructions: USE DIRECTED albuterol sulfate 90 mcg/actuation Aerosol Powdr Breath Activated 2 inh INHALATION QID PRN (Reason: Shortness Of Breath) atorvastatin 20 mg tablet 20 mg PO DAILY Rx Instructions: TAKE ONE TABLET BY MOUTH DAILY fluticasone propionate 50 mcg/actuation spray,suspension 2 spray intranasal DAILY Rx Instructions: USE 2 SPRAYS IN EACH NOSTRIL EVERY DAY insulin aspart U-100 100 unit/mL (3 mL) insulin pen 6 unit SUBCUT TID Rx Instructions: inject SIX units (0.06ml) SUBCUTANEOUSLY THREE TIMES DAILY hydrochlorothiazide 12.5 mg tablet 12.5 mg PO DAILY Rx Instructions: TAKE ONE TABLET BY MOUTH DAILY NEEDED FOR ankle swelling insulin glargine [Lantus Solostar U-100 Insulin] 100 unit/mL (3 mL) insulin pen 20 unit SUBCUT DAILY Rx Instructions: inject 20 units (0.2ml) SUBCUTANEOUSLY EVERY DAY Discharge Orders: Discharge ED (Routine); Ordered 03/16/24 Ordered By: Siddharth Kapadia Referrals: Bentley Elizabeth MD [Primary Care Provider] - Filiberto Irvin DO [Physician] - 4-7 days (Lateral malleolus fracture, questionable posterior malleolus fracture. Patient is short leg splint, nonweightbearing and given crutches) Discharge Diet: Advance as tolerated Discharge Activity: Limit activity as instructed Patient Instructions: Ankle Fracture (DC), Splint Care (ED), Opioid Safety, Pain Management Activity Restrictions/Additional Instructions: Please remain nonweightbearing on the left extremity. Keep the extremity elevated and use ice as needed. Drink at least 60 oz of clear fluids daily and make sure you are eating 3 meals per day! 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
[2024-03-16 15:09] VITALS: BP 145/96; PULSE 111; O2SAT 96
== END 2024-03-16 15:13 | disposition home or self-care (01) ==
PROVIDERS: Nurse Practitioner; Emergency Provider Emergency Medicine; PCP Family Medicine
DX: S82.62XA Displaced fracture of lateral malleolus of left fibula, initial encounter for closed fracture (principal); E86.0 Dehydration; Z79.84 Long term (current) use of oral hypoglycemic drugs; Z79.4 Long term (current) use of insulin; E11.40 Type 2 diabetes mellitus with diabetic neuropathy, unspecified; W19.XXXA Unspecified fall, initial encounter
CPT/HCPCS: 29515; 71046; 73590; 73610; 73630; 87637; 93005; 99285; E0114

== ENCOUNTER 2024-05-19 10:01 | Outpatient (CLI) | payer BC, MEDICAID, SELFPAY ==
--- NOTE | 2024-05-19 10:40 | MM_ITS ---
WS: [id number] BILATERAL SCREENING DIGITAL TOMOSYNTHESIS MAMMOGRAM WITH CAD HISTORY: screening COMPARISON: 07/25/2021 Bilateral CC and MLO views with tomosynthesis and synthetic mammography submitted. Computer aided detection analyzed. Breast composition: There are scattered areas of fibroglandular density. No suspicious masses, microcalcifications or architectural distortion. Benign calcification central RIGHT breast. MM/MM scr BI tomosynthesis [id number] IMPRESSION: BI-RADS: 2 - Benign. FOLLOW UP: 1 Year Follow-up
== END 2024-05-19 10:02 | disposition home or self-care (01) ==
PROVIDERS: PCP Family Medicine; Visit Provider Family Medicine
DX: Z12.31 Encounter for screening mammogram for malignant neoplasm of breast (principal); R92.323 Mammographic fibroglandular density, bilateral breasts; R92.1 Mammographic calcification found on diagnostic imaging of breast
CPT/HCPCS: 77063; 77067

== ENCOUNTER → 2024-05-20 09:09 | Outpatient (BNVA) | payer BC, MEDICAID, SELFPAY | PROVIDERS: PCP Family Medicine; Visit Provider Podiatrist Foot & Ankle Surgery | DX: M25.572 Pain in left ankle and joints of left foot (principal); E11.65 Type 2 diabetes mellitus with hyperglycemia; Z79.4 Long term (current) use of insulin; G62.9 Polyneuropathy, unspecified | CPT/HCPCS: 73610 ==

== ENCOUNTER 2024-06-09 09:34 | Outpatient (CLI) | payer BC, MEDICAID, SELFPAY ==
[2024-06-09 10:44] LABS: Estmated Average Glucose 358; Hemoglobin A1C 14.1 % (4.0-6.0)
[2024-06-09 10:53] LABS: Creatinine Urine, Random 61 mg/dL (28-217); Microalbumin Random Urine 3 ug/dL (0-20)
[2024-06-09 10:57] LABS: Microalbum Creatinine Ratio Ur 49 mg/dL (0-20)
[2024-06-09 10:57] LABS: Alanine Aminotransferase 16 U/L (0-33); Albumin Level 4.2 g/dL (3.5-5.2); Alkaline Phosphatase 88 U/L (35-105); Anion Gap 14.4 (5-19); Aspartate Amino Transferase 16 U/L (0-32); Blood Urea Nitrogen 28 mg/dL (6-20); Calcium 9.1 mg/dL (8.5-10.5); Carbon Dioxide 28 mmol/L (22-29); Chloride 100 mmol/L (98-107); Chol HDL Ratio 2.98 mg/dL (0.0-4.40); Cholesterol 167 mg/dL (0-200); Globulin 2.9 g/dL (1.3-4.6); Glomerular Filtration Rate 65.2 mL/min (90-130); Glucose 235 mg/dL (65-115); HDL Cholesterol 56 mg/dL (60-100); LDL Cholesterol Calculated 84 mg/dL (50-129); Osmolality Calculated 299 mOsm/kg (285-295); Potassium 4.4 mmol/L (3.5-5.1); Sodium 138 mmol/L (136-145); Total Bilirubin 0.2 mg/dL (0.15-1.2); Total Protein 7.1 g/dL (6.6-8.7); Triglycerides 134 mg/dL (0-150)
== END 2024-06-09 09:35 | disposition home or self-care (01) ==
LOC: LAB 09:35
PROVIDERS: PCP Family Medicine; Visit Provider Internal Medicine
DX: E11.65 Type 2 diabetes mellitus with hyperglycemia (principal); Z79.4 Long term (current) use of insulin; E78.00 Pure hypercholesterolemia, unspecified
CPT/HCPCS: 36415; 80053; 80061; 82044; 83036

== ENCOUNTER 2024-07-17 10:05 | Emergency (ER) | payer BC, MEDICAID, SELFPAY ==
[2024-07-17 10:09] VITALS: BP 131/73; PULSE 97; RESP 18; TEMP 36.8; O2SAT 97
--- NOTE | 2024-07-17 10:13 | ECG_ITS ---
[facility]: 2024-07-17 Pat Name: Hannah Gardner Department: Room: Gender: Female Manager Access: : 1970 Requested By: Demario Odell Order Number: [id number] Samson MD: Socrates Ray M.D. Measurements Intervals [place] Rate: 83 P: 55 GA: 170 QRS: -19 QRSD: 82 T: 83 QT: 367 QTc: 431 Interpretive Statements SINUS RHYTHM POSSIBLE LEFT ATRIAL ENLARGEMENT [-0.1mV P-WAVE IN V1/V2] SEPTAL MYOCARDIAL INFARCTION , OF INDETERMINATE AGE [40+ ms Q WAVE IN V1/V2] Compared to ECG 03/16/2024 13:35:21 Sinus tachycardia no longer present Myocardial infarct finding still present Electronically Signed On 07-21-2024 09:29:15 CDT by Socrates Ray M.D. [email or web address]
--- NOTE | 2024-07-17 10:27 | W.ED.WEAKNES ---
HPI - Weakness General: Chief complaint: Weakness Stated complaint: weakness, diarrhea, dizzy Time Seen by Provider: 07/17/24 10:17 Source: patient Mode of arrival: ambulatory Limitations: no limitations History of Present Illness: This patient presents to the emergency department this morning because she feels weak and lightheaded when she stands and attempts to move around the house. She states that she initially developed some clear drainage and upper airway symptoms a week or more ago. This is not unusual for her in the spring and the high pollen count times of the year. She went and saw her doctor on Sunday and he gave her what she thinks was a steroid shot because he told her it might affect her blood sugars. At that time they had a discussion about medication changes and she was changed from her hydrocodone which she has been taking for some time to tramadol. This was at her request because she thought that she should try to change her medications. There were no other changes in her medications. She states that the past couple of days she is felt unsteady and dizzy without any associated neurologic symptoms such as focal weakness, significant headache, change in vision, difficulty with speech etc. She denies any known exposure to infectious disease. She states her mother lives with her and she has allergy symptoms similar to her. They both smoke tobacco. She has a history of insulin requiring diabetes and has an insulin pump and a continuous glucose monitor. She states that her biggest issue today is that she has had numerous loose stools over the past 24 hours and is fearful of stimulating additional stool and therefore has not eaten or drank. She states there is no blood in her stools. She states she has no associated abdominal pain just the urge to defecate with cramping. She states she is making some urine. She states she has a chronic peripheral neuropathy secondary to her diabetes and also has chronic pain in her ankles because of 2 recent for ankle fractures. She states she has had no palpitations etc. She has not had any syncopal falls recently. She has previously had apparent syncopal falls. Again she denies any fevers or known exposure to infectious disease but states her cough has become more yellow over the past few days. She denies any concomitant shortness of breath. Associated symptoms: Denies chest pain, chills, melena, dysuria, easy bruising, fever(s), nausea, syncope or vomiting Review of Systems Const: Denies: fever(s), chills or body aches Eyes: Denies: change in vision ENMT: Reports: nasal discharge and nasal congestion; Denies: odynophagia, tinnitus, disequilibrium or epistaxis Card: Reports: lightheadedness; Denies: chest pain, palpitations, irregular heart rhythm, syncope or pre-syncope Resp: Reports: productive cough; Denies: dyspnea or non-productive cough GI: Reports: diarrhea; Denies: abdominal pain, nausea, vomiting, hematochezia or melena : Denies: flank pain, difficulty voiding or dysuria Musc: Reports: extremity pain; Denies: neck pain or back pain Skin/Breast: Denies: rash or pruritus Neuro: Denies: weakness in extremities, sensory changes, vertigo or Slurred speech present Psych: Reports: anxiety Rafi/Lymph: Denies: easy bruising or easy bleeding PFS ED PFSH: Medical History Conjunctivitis Right ankle strain No pertinent family history Abnormal weight loss Encounter for screening mammogram for breast cancer Diabetic neuropathy Diabetes Anxiety Hypercholesteremia Chronic bilateral back pain Social History Smoking and tobacco/nicotine status: current every day tobacco/nicotine user Alcohol intake: never Substance/Drug Use: never Physical Exam Narrative: EXAM NARRATIVE: Patient is alert in no acute distress maintains good eye contact and her speech is fluent. Const: COMMON NORMALS: no acute distress, average body habitus, patient oriented x3 and alert GENERAL APPEARANCE: cooperative and anxious HENMT: COMMON NORMALS: normocephalic, Normal external nose present, Normal nasal mucous membranes and turbinates present, moist oral mucous membranes and oropharynx normal HEAD & SCALP: normocephalic FACE & SINUS: sinuses nontender and face symmetric NOSE: Normal external nose present and Normal nasal mucous membranes and turbinates present Eye: COMMON NORMALS: Equal, round and reactive pupils present, EOMs intact bilaterally and conjunctivae normal CONJUNCTIVA: Yes conjunctivae normal PUPIL: Yes Equal, round and reactive pupils present Neck/C-Spine: COMMON NORMALS: full ROM, no lymphadenopathy, no JVD and No carotid bruits Resp: COMMON NORMALS: normal respiratory effort, No retractions, No use of accessory muscles and clear to auscultation bilaterally AUSCULTATION: clear to auscultation bilaterally Cardio: COMMON NORMALS: no JVD, regular rate, regular rhythm, No murmurs present (Cardio) and Peripheral pulses 2+ throughout RATE: regular rate RHYTHM: regular rhythm PERIPHERAL PULSES: Peripheral pulses 2+ throughout GI: COMMON NORMALS: Normal to inspection, nondistended, normoactive bowel sounds present, Soft to palpation, non-tender and no masses PALPATION: Yes Soft to palpation : COMMON NORMALS: Yes no CVA tenderness BLADDER/KIDNEY EXAM: Yes no CVA tenderness Back/Pelvis: COMMON NORMALS: no CVA tenderness and thoraco-lumbar ROM normal Extremity: COMMON NORMALS: normal to inspection, full ROM and capillary refill normal NARRATIVE EXTREMITY EXAM: 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 Neuro: COMMON NORMALS: patient oriented x3, moves all extremities and no focal motor deficits SENSORIUM/ORIENTATION: Yes alert COORDINATION/BALANCE: [id number] test normal and [id number] test normal SPEECH: speech normal SENSORY EXAM: Yes extremities (She has altered sensation to light touch on both distal lower extremities.) COORDINATION: [id number] test normal and [id number] test normal Psych: COMMON NORMALS: mental status grossly normal and Normal thought process present THOUGHT PROCESS: Normal thought process present Skin: COMMON NORMALS: no rashes or lesions noted, no wounds and turgor normal GENERAL SKIN EXAM: no rashes or lesions noted and turgor normal Course Reevaluation(s): Reevaluation #1: Patient ambulated about the emergency department without any evidence of ataxia or other gait disturbance. Time: 12:13 Reevaluation #2: Patient states she is feeling better. We are going to have her trial of oral fluids to ensure that she is tolerating that well. Time: 12:37 Reevaluation #3: She tolerated fluids well had no more loose stools while in the emergency department and desires to be discharged home. She does not have any more of or normal hydrocodone and I told her I would give her 3 days of hydrocodone until she could contact her primary care doctor and renew her prescription. We also discussed return precautions. Time: 13:06 Vital Signs: Vital signs: Vital Signs Temperature 98.2 F 07/17/24 10:09 Pulse Rate 101 H 07/17/24 11:32 Respiratory Rate 18 07/17/24 10:09 Blood Pressure 166/96 07/17/24 11:32 Pulse Oximetry 94 07/17/24 11:32 Oxygen Delivery Me thod Room Air 07/17/24 11:32 MDM - Weakness Medical Decision Making Patient presents as noted in history of present illness. She has several factors that may be contributing to her current presentation not the least of which may be her switch from her chronic opiates to tramadol which is an opiate like and may be contributing to her lightheadedness. She has also had concomitant diarrhea which may in be in fact related to her opiate discontinuation or potential illness although the latter is less likely. The fluid loss due to her stools may be contributing to her lightheadedness. Does not suggest a central nervous system issue at this time, cardiovascular issue at this time but we will proceed with hydration, and more ancillary studies to attempt to determine if there is a other condition contributing to her presentation today The patient's Emergency Department stay was notable in that she received 2 L of IV fluids was ambulatory without any difficulty and her laboratories were only remarkable for evidence of volume depletion. Chest x-ray was reassuring and heart monitor was also reassuring again she ambulated without difficulty. She tolerated p.o. fluids is being discharged to home. Likely a result of her medication adjustments and she is does not want to go back on the tramadol. Discussed need for primary care follow-up to review her medications and also return precautions for the emergency department. Lab Data I reviewed the patient's lab results. 07/17/24 10:40 07/17/24 10:40 Radiology Impressions Chest X-Ray 07/17/24 10:37 Impression: Negative chest. Laboratory Results WBC 13.31 10^3/uL (3.29-11.43) H 07/17/24 10:40 RBC 5.96 10^6/uL (3.85-5.65) H 07/17/24 10:40 Hgb 15.30 g/dL (11.27-16.99) 07/17/24 10:40 Hct 48.3 % (36-47) H 07/17/24 10:40 MCV 81.0 fl (85-98) L 07/17/24 10:40 MCH 25.7 pg (27-33) L 07/17/24 10:40 MCHC 31.7 g/dL (30-55) 07/17/24 10:40 RDW 15.2 % (12.1-15.1) H 07/17/24 10:40 Plt Count 325 10^3/cmm (157-399) 07/17/24 10:40 MPV 10.0 fL (7.4-10.4) 07/17/24 10:40 Neut % (Auto) 70.7 % 07/17/24 10:40 Lymph % (Auto) 21.3 % 07/17/24 10:40 [place] % (Auto) 6.5 % 07/17/24 10:40 Eos % (Auto) 0.7 % 07/17/24 10:40 Baso % (Auto) 0.5 % 07/17/24 10:40 Neut # (Auto) 9.42 10^3/uL (1.8-7.7) H 07/17/24 10:40 Lymph # (Auto) 2.8 10^3/uL (0.8-4.8) 07/17/24 10:40 [place] # (Auto) 0.9 10^3/uL (0.2-0.9) 07/17/24 10:40 Eos # (Auto) 0.1 10^3/uL (0.0-0.8) 07/17/24 10:40 Baso # (Auto) 0.1 10^3/uL (0.0-0.1) 07/17/24 10:40 Nucleated RBC % (auto) 0 % 07/17/24 10:40 Nucleated RBCs # 0.0 /100WBC 07/17/24 10:40 Sodium 137 mmol/L (136-145) 07/17/24 10:40 Potassium 4.7 mmol/L (3.5-5.1) 07/17/24 10:40 Chloride 100 mmol/L (98-107) 07/17/24 10:40 Carbon Dioxide 25 mmol/L (22-29) 07/17/24 10:40 Anion Gap 16.7 (5-19) 07/17/24 10:40 BUN 28 mg/dL (6-20) H 07/17/24 10:40 Creatinine 1.1 mg/dL (0.5-0.9) H 07/17/24 10:40 GFR Calculation 51.8 mL/min (90-130) L 07/17/24 10:40 Glucose 255 mg/dL (65-115) H 07/17/24 10:40 Calculated Osmolality 298 mOsm/kg (285-295) H 07/17/24 10:40 Calcium 9.8 mg/dL (8.5-10.5) 07/17/24 10:40 Magnesium 1.9 mg/dL (1.7-2.3) 07/17/24 10:40 Total Bilirubin 0.3 mg/dL (0.15-1.2) 07/17/24 10:40 AST 25 U/L (0-32) 07/17/24 10:40 ALT 22 U/L (0-33) 07/17/24 10:40 Alkaline Phosphatase 85 U/L (35-105) 07/17/24 10:40 Total Protein 8.2 g/dL (6.6-8.7) 07/17/24 10:40 Albumin 4.5 g/dL (3.5-5.2) 07/17/24 10:40 Globulin 3.7 g/dL (1.3-4.6) 07/17/24 10:40 Urine Color Dark yellow (Yellow) A 07/17/24 10:49 Urine Appearance Cloudy (CLEAR) A 07/17/24 10:49 Urine pH 5.0 (5-7) 07/17/24 10:49 Ur Specific [place] 1.026 (1.005-1.030) 07/17/24 10:49 Urine Protein 2+ (Negative) A 07/17/24 10:49 Urine Glucose (UA) Negative (Normal) 07/17/24 10:49 Urine Ketones Trace (Negative) 07/17/24 10:49 Urine Blood Negative (Negative) 07/17/24 10:49 Urine Nitrate Negative (Negative) 07/17/24 10:49 Urine Bilirubin 1+ (Negative) H 07/17/24 10:49 Urine Urobilinogen 1.0 mg/dL (Negative) 07/17/24 10:49 Ur Leukocyte Esterase Trace (Negative) A 07/17/24 10:49 Urine RBC None /hpf (0-2) 07/17/24 10:49 Urine WBC 0-4 /hpf (0-5) H 07/17/24 10:49 Ur Squamous Epith Cells 0-4 /hpf (0-5) H 07/17/24 10:49 Amorphous Sediment Not Reportable 07/17/24 10:49 Urine Bacteria None /hpf (NONE) 07/17/24 10:49 Hyaline Casts 10-15 /lpf H 07/17/24 10:49 Urine Mucus None /hpf 07/17/24 10:49 All radiology interpretation(s) finalized by discharge EKG Data EKG 1: I personally reviewed and interpreted this EKG as follows: Interpretation: Contemporaneous review of resting EKG reveals ventricular rate of 83 bpm with a normal [place] interval, QRS duration, corrected QT interval. Normal axis. Consistent with sinus rhythm. She has evidence of possible left atrial enlargement on limb leads. No acute ST-T wave changes noted. Discharge Plan Discharge Patient Disposition: Home Clinical Impression: Fluid volume depletion Diarrhea Qualifiers: Diarrhea type: unspecified type Qualified Code(s): R19.7 - Diarrhea, unspecified Condition: Stable Prescriptions: New hydrocodone-acetaminophen 10-325 mg tablet 1 tab PO BID Qty: 10 0RF No Action (DME) ASO brace See Rx Instructions .Route .MEDSUPPLY Qty: 1 0RF Rx Instructions: As directed to HOME (DME) Omnipod 5 G6-G7 Intro Kt(Gen5) Cartridge See Rx Instructions .Route Qty: 1 0RF Rx Instructions: As directed (DME) Omnipod 5 G6-G7 Pods (Gen 5) Cartridge See Rx Instructions .Route Qty: 10 3RF Rx Instructions: change pod every 3 days insulin lispro [Humalog U-100 Insulin] 100 unit/mL solution 50 unit continuous subcutaneous infusion DAILY Qty: 40 1RF Rx Instructions: 50 units via insulin pump daily (DME) insulin syringes (disposable) 1 mL syringe See Rx Instructions .ROUTE .MEDSUPPLY Qty: 500 0RF Rx Instructions: As directed (DME) pen needle, diabetic [Comfort EZ Pen [place]] 32 gauge x 3/16 needle See Rx Instructions .Route Qty: 100 0RF Rx Instructions: As directed tramadol 50 mg tablet 50 mg PO Q8H PRN (Reason: pain) 5 Days Qty: 15 0RF cephalexin 500 mg capsule 500 mg PO Q8H Qty: 40 0RF Rx Instructions: take 3 times daily for 5 days, then twice daily erythromycin 5 mg/gram (0.5 %) ointment 0.5 inch ophthalmic (eye) BID Qty: 3.5 1RF hydrocodone-acetaminophen 10-325 mg tablet 1 tab PO .COMPLEX PRN (Reason: pain) 30 Days Qty: 75 0RF Rx Instructions: Frequency: One to TID as needed (DME) 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 See Rx Instructions .ROUTE .COMPLEX Qty: 1 1RF Dose Instruction: USE DIRECTED Rx Instructions: USE DIRECTED (DME) pen needle, diabetic [Pentips Pen Needle] 32 gauge x 5/32 needle See Rx Instructions .ROUTE .COMPLEX Qty: 100 3RF Dose Instruction: USE DIRECTED Rx Instructions: USE DIRECTED carisoprodol 350 mg tablet 350 mg PO ONCE 30 Days Qty: 30 5RF pregabalin 200 mg capsule 200 mg PO BID 90 Days Qty: 180 1RF hydrochlorothiazide 12.5 mg tablet See Rx Instructions .ROUTE .COMPLEX Qty: 30 6RF Dose Instruction: TAKE ONE TABLET BY MOUTH DAILY NEEDED FOR ankle swelling Rx Instructions: TAKE ONE TABLET BY MOUTH DAILY NEEDED FOR ankle swelling (DME) Dexcom G7 Sensor Device See Rx Instructions .ROUTE .COMPLEX Qty: 3 6RF Dose Instruction: CHANGE EVERY 10 DAYS DIRECTED Rx Instructions: CHANGE EVERY 10 DAYS DIRECTED atorvastatin 20 mg tablet See Rx Instructions .ROUTE .COMPLEX Qty: 90 1RF Dose Instruction: TAKE ONE TABLET BY MOUTH DAILY Rx Instructions: TAKE ONE TABLET BY MOUTH DAILY albuterol sulfate 90 mcg/actuation Aerosol Powdr Breath Activated 2 inh INHALATION QID PRN (Reason: Shortness Of Breath) fluticasone propionate 50 mcg/actuation spray,suspension 2 spray intranasal DAILY Rx Instructions: USE 2 SPRAYS IN EACH NOSTRIL EVERY DAY Vitamin Plus Low Iron 27 mg iron- 1 mg tablet 1 tab PO DAILY alprazolam 1 mg tablet 1 mg PO BID PRN (Reason: Anxiety) Discharge Orders: Discharge ED (Routine); Ordered 07/17/24 Ordered By: Gopal Matta Referrals: Bentley Elizabeth MD [Primary Care Provider, Family Practice] Discharge Diet: Advance as tolerated Discharge Activity: Resume usual activity Patient Instructions: Opioid Safety, Pain Management Activity Restrictions/Additional Instructions: As we discussed it appears that most your symptoms are likely related to your change in pain medication. We advise you to discuss contact your primary hemodialysis patient care specialist to discuss your pain management. Monitor your blood sugar and continue with your usual intake of carbohydrates and proteins and etc. and consistent with your diabetes. If your symptoms do not continue to improve, worsen or new symptoms develop you are welcome to return to the emergency department at any time. 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 Related Data Home Medications ?Medication ?Instructions ?Recorded ?Confirmed albuterol sulfate 90 mcg/actuation 2 inh inhalation QID PRN Shortness 03/16/24 07/17/24 breath activated powder inhaler Of Breath fluticasone propionate 50 2 spray intranasal DAILY 03/16/24 07/17/24 mcg/actuation nasal spray,suspension alprazolam 1 mg tablet 1 mg PO BID PRN Anxiety 07/17/24 07/17/24 vitamin with calcium 1 tab PO DAILY 07/17/24 07/17/24 no.72-iron 27 mg-folic acid 1 mg tablet ( Vitamins Plus Low Iron) Previous Rx's ?Medication ?Instructions ?Recorded blood-glucose meter,continuous #1 ea 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 pump cart,auto,BT,G6/7 #10 ea 03/07/24 (Omnipod 5 G6-G7 Pods (Gen 5) subcutaneous cartridge) insulin pump cartridge,auto #1 ea 03/07/24 dose,BT,G6/G7 with controller subcutaneous (Omnipod 5 G6-G7 Intro Kit(Gen 5) subcutaneous cartridge and controller) pen needle, diabetic 32 gauge x #100 ea 03/07/24 (Pentips Pen Needle) carisoprodol 350 mg tablet 350 mg PO ONCE 30 days #30 tabs 03/25/24 pregabalin 200 mg capsule 200 mg PO BID 90 days #180 caps 05/11/24 hydrochlorothiazide 12.5 mg tablet See Rx Instructions .Route 05/19/24 .COMPLEX #30 tabs ASO brace #1 ea 05/20/24 insulin lispro 100 unit/mL 50 unit (0.5 mL) continuous 06/11/24 subcutaneous solution (Humalog subcutaneous infusion DAILY #40 mL U-100 Insulin) insulin syringes (disposable) 1 mL #500 ea 06/11/24 pen needle, diabetic 32 gauge x #100 ea 06/11/2406/01 (Comfort EZ Pen [place]) cephalexin 500 mg capsule 500 mg PO Q8H #40 caps 07/01/24 erythromycin 5 mg/gram (0.5 %) eye 0.5 inch ophthalmic (eye) BID #3.5 07/01/24 ointment (3.5 gram tube) grams hydrocodone 10 mg-acetaminophen 1 tab PO .COMPLEX PRN pain 30 days 07/01/24 325 mg tablet #75 tabs Held on 07/14/24. Instructions: Doctor's Order blood-glucose sensor (Dexcom G7 #3 ea 07/03/24 Sensor device) atorvastatin 20 mg tablet See Rx Instructions .Route 07/07/24 .COMPLEX #90 tabs tramadol 50 mg tablet 50 mg PO Q8H PRN pain 5 days #15 07/14/24 tabs hydrocodone 10 mg-acetaminophen 1 tab PO BID #10 tabs 07/17/24 325 mg tablet Allergies Allergy/AdvReac Type Severity Reaction Status Date / Time No Known Allergies Allergy Verified 07/14/24 14:10
--- NOTE | 2024-07-17 10:37 | XR_ITS ---
WS: [id number] Portable AP upright chest, 07/17/2024 Clinical Data: cough Comparison: Two-view chest, 03/16/2024 Findings: No nodules, masses or effusions are seen. The heart is normal. The pulmonary vascularity is not increased. No pneumonia or pneumothorax is seen. Monitor leads are on the chest wall. XR/XR chest 1V portable [id number] Impression: Negative chest.
[2024-07-17 10:46] LABS: Basophils # 0.1 10^3/uL (0.0-0.1); Basophils % 0.5 %; Eosinophils # 0.1 10^3/uL (0.0-0.8); Eosinophils % 0.7 %; Hematocrit 48.3 % (36-47); Lymphocytes # 2.8 10^3/uL (0.8-4.8); Lymphocytes % 21.3 %; Mean Corpuscular HGB Conc 31.7 g/dL (30-55); Mean Corpuscular Hemoglobin 25.7 pg (27-33); Monocytes # 0.9 10^3/uL (0.2-0.9); Monocytes % 6.5 %; Neutrophils # 9.42 10^3/uL (1.8-7.7); Neutrophils % 70.7 %; Nucleated Red Blood Cells % 0 %; Platelet Count 325 10^3/cmm (157-399); Red Blood Count 5.96 10^6/uL (3.85-5.65); Red Cell Distribution Width 15.2 % (12.1-15.1); White Blood Count 13.31 10^3/uL (3.29-11.43)
[2024-07-17] MEDS: lactated ringers 1,000 ML 999 ML IV ×2 (10:46→12:00)
[2024-07-17 11:02] LABS: Alanine Aminotransferase 22 U/L (0-33); Albumin Level 4.5 g/dL (3.5-5.2); Alkaline Phosphatase 85 U/L (35-105); Anion Gap 16.7 (5-19); Aspartate Amino Transferase 25 U/L (0-32); Blood Urea Nitrogen 28 mg/dL (6-20); Calcium 9.8 mg/dL (8.5-10.5); Carbon Dioxide 25 mmol/L (22-29); Chloride 100 mmol/L (98-107); Creatinine Clr Calc Pharmacy 47.7387; Globulin 3.7 g/dL (1.3-4.6); Glomerular Filtration Rate 51.8 mL/min (90-130); Glucose 255 mg/dL (65-115); Magnesium 1.9 mg/dL (1.7-2.3); Osmolality Calculated 298 mOsm/kg (285-295); Potassium 4.7 mmol/L (3.5-5.1); Sodium 137 mmol/L (136-145); Total Bilirubin 0.3 mg/dL (0.15-1.2); Total Protein 8.2 g/dL (6.6-8.7)
[2024-07-17 11:02] LABS: Bilirubin Urine 1+ (Negative); Blood Urine Negative (Negative); Glucose Urine UA Negative (Normal); Ketones Urine Trace (Negative); Leukocyte Esterase Urine Trace (Negative); Nitrate Urine Negative (Negative); Protein Urine 2+ (Negative); Specific Gravity, Urine 1.026 (1.005-1.030); Urine Appearance Cloudy (CLEAR); Urine Color Dark Yellow (Yellow)
[2024-07-17 11:08] LABS: UA Manual Slide Review YES; UA Slide Review UA Slide Review Perf
[2024-07-17 11:09] LABS: Add Urine Microscopic? YES
[2024-07-17 11:11] LABS: Add Urine Culture? No; Squamous Epithelial Cell Urine 0-4 /hpf (0-5); WBC Urine 0-4 /hpf (0-5)
[2024-07-17 11:32] VITALS: BP 166/96; PULSE 101; O2SAT 94
[2024-07-17 13:20] VITALS: BP 144/92; PULSE 94; O2SAT 97
== END 2024-07-17 13:21 | disposition home or self-care (01) ==
PROVIDERS: Emergency Provider Emergency Medicine; PCP Family Medicine
DX: R19.7 Diarrhea, unspecified (principal); E86.9 Volume depletion, unspecified; Z79.4 Long term (current) use of insulin; Z72.0 Tobacco use; E11.40 Type 2 diabetes mellitus with diabetic neuropathy, unspecified
CPT/HCPCS: 36415; 71045; 80053; 81001; 83735; 85025; 93005; 96360; 96361; 99285; J7120

== ENCOUNTER 2024-08-02 07:31 | Emergency (ER) | payer BC, MEDICAID, SELFPAY ==
[2024-08-02] VITALS (8 sets, daily range): BP systolic 91–132; BP diastolic 62–85; PULSE 90–105; RESP 17–23; TEMP 36.9; O2SAT 94–100; BMI 23.4
--- NOTE | 2024-08-02 07:43 | XRR_ITS ---
PROCEDURE INFORMATION: Exam: XR Chest Exam date and time: 08/02/2024 7:48 AM Age: 54 years old Clinical indication: Other: Vomiting, elevated blood sugar TECHNIQUE: Imaging protocol: Radiologic exam of the chest. Views: 1 view. COMPARISON: CR XR chest 1V portable [id number] 07/17/2024 10:39 AM FINDINGS: Lungs: Focal indistinct micronodular opacities projecting peripherally right midlung zone none the current study possibly representing minimal bronchiolitis. Lung lantigua are otherwise clear. No consolidating infiltrates or overt CHF. Pleural spaces: Unremarkable. No pleural effusion. No pneumothorax. Heart/Mediastinum: Unremarkable. No cardiomegaly. Bones/joints: No acute bony abnormalities detected. XR/XR chest 1V portable [id number] IMPRESSION: Minimal patchy bronchiolitis right midlung zone otherwise negative chest.
--- NOTE | 2024-08-02 07:43 | ECG_ITS ---
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 Measurements Intervals [place] Rate: 98 P: 66 NM: 190 QRS: -14 QRSD: 97 T: 79 QT: 357 QTc: 456 Interpretive Statements SINUS RHYTHM SEPTAL MYOCARDIAL INFARCTION , OF INDETERMINATE AGE [40+ ms Q WAVE IN V1/V2] Compared to ECG 07/17/2024 10:13:28 No significant changes Electronically Signed On 08-02-2024 11:51:14 CDT by Karly Mares M.D. [email or web address]
[2024-08-02 07:47] LABS: Glucose Point of Care 422 mg/dL (70-110)
[2024-08-02 07:54] LABS: Basophils % 0.3 %; Eosinophils % 0.1 %; Hematocrit 47.3 % (36-47); Lymphocytes # 2.2 10^3/uL (0.8-4.8); Lymphocytes % 19.6 %; Mean Corpuscular HGB Conc 31.7 g/dL (30-55); Mean Corpuscular Hemoglobin 25.5 pg (27-33); Mean Corpuscular Volume 80.4 fl (85-98); Mean Platelet Volume 10.1 fL (7.4-10.4); Monocytes # 0.6 10^3/uL (0.2-0.9); Monocytes % 5.5 %; Neutrophils # 8.17 10^3/uL (1.8-7.7); Neutrophils % 74.2 %; Nucleated Red Blood Cells % 0 %; Platelet Count 365 10^3/cmm (157-399); Red Blood Count 5.88 10^6/uL (3.85-5.65); Red Cell Distribution Width 14.3 % (12.1-15.1); White Blood Count 11.01 10^3/uL (3.29-11.43)
[2024-08-02 07:56] LABS: ABG PCO2 46.2 mmHg (35-45); Alveolar-Arterial Oxygen Gradi 5.1 mmHg (5-10); Base Excess ABG 10.9 mmol/L (-2.0-2.0); Blood Gas Allen Test Pos; Blood Gas Operator Identificat WALCI; Blood Gas Sample Site Radial, right; Blood Gas Sample Type Arterial; Carboxyhemoglobin 7.7 %THgb (0.4-20.1); HCO3 ABG 35.7 mmol/L (22-26); HGB O2 Sat 82.3 % (95-100); Ionized Calcium Level - ABG 1.2 mmol/L (1.1-1.4); Methemoglobin 0.9 % (0.4-1.5); Oxygen Device ROOM AIR; Oxygen Saturation ABG 90.2; PO2 ABG 53.2 mmHg (80.0-100.0); PO2 FiO2 Ratio Arterial Blood 253; Potassium Level - ABG 3.4 mmol/L (3.5-5.0)
[2024-08-02] MEDS: sodium chloride 0.9% 1,000 ML 999 ML IV (08:04)
[2024-08-02 08:07] LABS: Ketone (Acetest) Serum Negative (Negative)
--- NOTE | 2024-08-02 08:08 | ED_ITS ---
HPI - Nausea/Vomiting/Diarrhea 2 General: Chief complaint: Nausea/Vomiting/Diarrhea Stated complaint: vomitting, high BS Time Seen by Provider: 08/02/24 07:41 History of Present Illness: 54-year-old female presents emergency ro om complaining of nausea and vomiting that began last night. Blood sugars not been well-controlled last several days her Dexcom is not working. She was able to get it working this morning blood sugar in the 400s. She is complaining of epigastric pain as well. Associated symtoms: Denies chest pain or dysuria Related Data Home Medications ?Medication ?Instructions ?Recorded ?Confirmed albuterol sulfate 90 mcg/actuation 2 inh inhalation QI D PRN Shortness 03/16/24 08/02/24 breath activated powder inhaler Of Breath fluticasone propionate 50 2 spray intranasal DAILY 08/02/24 mcg/actuation nasal spray,suspension vitamin with calcium 1 tab PO DAILY 07/17/24 08/02/24 no.72-iron 27 mg-folic acid 1 mg tablet ( Vitamins Plus Low Iron) aspirin 81 mg tablet,delayed 81 mg PO DAILY 08/02/24 0 08/02/24 release (Teddy Low Dose Aspirin) Previous Rx's ?Medication ?Instructions ?Recorded blood-glucose,freight receiver,cont #1 ea 05/25/23 (Dexcom G7 Editor In Chief) insulin pump cart,auto,BT,G6/7 #10 ea 03/07/24 (Omnipod 5 G6-G7 Pods (Gen 5) subcutaneous cartridge) insulin pump cartridge,auto #1 ea 03/07/24 dose,BT,G6/G7 with controller subcutaneous (Omnipod 5 G6-G7 Intro Kit(Gen 5) subcutaneous cartridge and controller) pen needle, diabetic 32 gauge x #100 ea 03/07/24 (Pentips Pen Needle) carisoprodol 350 mg tablet 350 mg PO ONCE 30 days #30 tabs 03/25/24 pregabalin 200 mg capsule 200 mg PO BID 90 days #180 c aps 05/11/24 hydrochlorothiazide 12.5 mg tablet See Rx Instructions .Route 05/19/24 .COMPLEX #30 tabs ASO brace #1 ea 05/20/24 insulin lispro 100 unit/mL 50 unit (0.5 mL) continuous 06/11/24 subcutaneous solution (Humalog subcutaneous infusion D AILY #40 mL U-100 Insulin) insulin syringes (disposable) 1 mL #500 ea 06/11/24 pen needle, diabetic 32 gauge x #100 ea 06/11/2406/01 (Comfort EZ Pen [place]) blood-glucose sensor (Dexcom G7 #3 ea 07/03/24 Sensor device) atorvastatin 20 mg tablet See Rx Instructions .Route 0 07/07/24 .COMPLEX #90 tabs alprazolam 1 mg tablet 1 mg PO BID PRN Anxiety #60 tabs 07/21/24 hydrocodone 10 mg-acetaminophen 1 tab PO TID PRN pain 30 days #75 07/31/24 325 mg tablet tabs blood sugar diagnostic (Blood #50 ea 08/02/24 Glucose Test strips) promethazine 25 mg tablet 25 mg PO Q6H PRN nausea and 08/02/24 vomiting #20 tabs Allergies Allergy/AdvReac Type Severity Reaction Status Date / Time No Known Allergies Allergy Verified 07/14/24 14:10 Review of Systems 2 Const: Denies: fever(s) or chills Card: Denies: chest pain Resp: Denies: dyspnea GI: Denies: abdominal pain : Denies: dysuria, urinary frequency or urinary urgency Musc: Denies: neck pain or back pain Skin/Breast: Denies: rash PFSH ED 2 PFSH: Medical History Conjunctivitis Right ankle strain No pertinent family history Abnormal weight loss Encounter for screening mammogram for breast cancer Diabetic neuropathy Diabetes Anxiety Hypercholesteremia Chronic bilateral back pain Social History Smoking and tobacco/nicotine status: never used tobacco/nicotine Alcohol intake: never Substance/Drug Use: never Physical Exam 2 Const: GENERAL APPEARANCE: cooperative ORIENTATION/CONSCIOUSNESS: Yes awake, Yes oriented to person, Yes oriented to place and Yes oriented to time HENMT: COMMON NORMALS: normocephalic, atraumatic and hearing grossly normal bilaterally HEAD & SCALP: normocephalic and atraumatic Resp: COMMON NORMALS: normal respiratory effort, No retractions, No use of accessory muscles and clear to auscultation bilaterally AUSCULTATION: clear to auscultation bilaterally Cardio: COMMON NORMALS: regular rate, regular rhythm and No murmurs present (Cardio) RATE: regular rate RHYTHM: regular rhythm GI: COMMON NORMALS: Soft to palpation and No hepatosplenomegaly present A USCULTATION: Yes normoactive bowel sounds PALPATION: Yes Soft to palpation, No Tenderness to palpation present (GI), No Guarding due to palpation present (GI) and Yes No hepatosplenomegaly present Extremity: COMMON NORMALS: normal to inspection, capillary refill normal, no clubbing, cyanosis or edema, no calf tenderness and no pedal edema Neuro: SENSORIUM/ORIENTATION: Yes oriented to person, Yes oriented to place and Yes oriented to time Skin: COMMON NORMALS: no rashes or lesions noted GENERAL SKIN EXAM: no rashes or lesions noted Course 2 Vital Signs: Vital signs: Vital Signs Temperature 98.4 F 08/02/24 07:40 Pulse Rate 96 08/02/24 12:23 Respiratory Rate 19 H 08/02/24 10:00 Blood Pressure 91/62 08/02/24 12:23 Pulse Oximetry 100 08/02/24 12:23 Oxygen Delivery Me thod Room Air 08/02/24 07:40 MDM - Nausea/Vomiting/Diarrhea Medical Decision Making Blood sugar initially high. We did convince Esthela to control fluids and insulin. Patient Dexcom is not reading accurately we checked a couple Accu-Chek shoes around 110 but her Dexcom is reading a little over 50. She is going to monitor at home she has the ability to do regular Accu-Cheks we gave her prescription for more glucose strips. She will continue her insulin pump. Contact her supplier to get a replacement pod for the Dexcom since she can next week. Return if she has further problems. Patient states she is feeling much better and wishes to go home. Chest x-ray read as patchy bronchiolitis she is not having respiratory symptoms at this time did not initiate antibiotics, do not believe they are indicated at this time. Medical Records I reviewed the patient's medical records. Lab Data I reviewed the patient's lab results. 08/02/24 07:48 08/02/24 07:48 Radiology Impressions Chest X-Ray 08/02/24 07:43 IMPRESSION: Minimal patchy bronchiolitis right midlung zone otherwise negative chest. Laboratory Results WBC 11.01 10^3/uL (3.29-11.43) 08/02/24 07:48 RBC 5.88 10^6/uL (3.85-5.65) H 08/02/24 07:48 Hgb 15.00 g/dL (11.27-16.99) 08/02/24 07:48 Hct 47.3 % (36-47) H 08/02/24 07:48 MCV 80.4 fl (85-98) L 08/02/24 07:48 MCH 25.5 pg (27-33) L 08/02/24 07:48 MCHC 31.7 g/dL (30-55) 08/02/24 07:48 RDW 14.3 % (12.1-15.1) 08/02/24 07:48 Plt Count 365 10^3/cmm (157-399) 08/02/24 07:48 MPV 10.1 fL (7.4-10.4) 08/02/24 07:48 Neut % (Auto) 74.2 % 08/02/24 07:48 Lymph % (Auto) 19.6 % 08/02/24 07:48 [place] % (Auto) 5.5 % 08/02/24 07:48 Eos % (Auto) 0.1 % 08/02/24 07:48 Baso % (Auto) 0.3 % 08/02/24 07:48 Neut # (Auto) 8.17 10^3/uL (1.8-7.7) H 08/02/24 07:48 Lymph # (Auto) 2.2 10^3/uL (0.8-4.8) 08/02/24 07:48 [place] # (Auto) 0.6 10^3/uL (0.2-0.9) 08/02/24 07:48 Eos # (Auto) 0.0 10^3/uL (0.0-0.8) 08/02/24 07:48 Baso # (Auto) 0.0 10^3/uL (0.0-0.1) 08/02/24 07:48 Nucleated RBC % (auto) 0 % 08/02/24 07:48 Nucleated RBCs # 0.0 /100WBC 08/02/24 07:48 Specimen Type Arterial 08/02/24 07:45 Sample Site Radial, right 08/02/24 07:45 ABG pH 7.50 (7.35-7.45) H 08/02/24 07:45 ABG pCO2 46.2 mmHg (35-45) H 08/02/24 07:45 ABG pO2 53.2 mmHg (80.0-100.0) L 08/02/24 07:45 ABG PO2/FiO2 Ratio 253 08/02/24 07:45 ABG HCO3 35.7 mmol/L (22-26) H 08/02/24 07:45 ABG O2 Saturation 90.2 08/02/24 07:45 ABG Base Excess 10.9 mmol/L (-2.0-2.0) H 08/02/24 07:45 [place] Test Pos 08/02/24 07:45 A-a O2 Gradient 5.1 mmHg (5-10) 08/02/24 07:45 Hematocrit 46.0 % (37-47) 08/02/24 07:45 Hgb O2 Saturation 82.3 % (95-100) L 08/02/24 07:45 Carboxyhemoglobin 7.7 %THgb (0.4-20.1) 08/02/24 07:45 Methemoglobin 0.9 % (0.4-1.5) 08/02/24 07:45 Total Hemoglobin 15.0 g/dL (12-16) 08/02/24 07:45 Sodium 137.0 mmol/L (131-143) 08/02/24 07:45 Potassium 3.4 mmol/L (3.5-5.0) L 08/02/24 07:45 Glucose 334.0 mg/dL (70-115) H 08/02/24 07:45 Ionized Calcium 1.2 mmol/L (1.1-1.4) 08/02/24 07:45 O2 Delivery Device Room air 08/02/24 07:45 FiO2 21.0 % 08/02/24 07:45 Marble Helper ID [place] 08/02/24 07:45 Sodium 135 mmol/L (136-145) L 08/02/24 07:48 Potassium 4.0 mmol/L (3.5-5.1) 08/02/24 07:48 Chloride 88 mmol/L (98-107) L 08/02/24 07:48 Carbon Dioxide 33 mmol/L (22-29) H 08/02/24 07:48 Anion Gap 18.0 (5-19) 08/02/24 07:48 BUN 28 mg/dL (6-20) H 08/02/24 07:48 Creatinine 1.2 mg/dL (0.5-0.9) H 08/02/24 07:48 GFR Calculation 46.6 mL/min (90-130) L 08/02/24 07:48 Glucose 365 mg/dL (65-115) H 08/02/24 07:48 POC Glucose 209 mg/dL (70-110) H 08/02/24 12:00 Calculated Osmolality 300 mOsm/kg (285-295) H 08/02/24 07:48 Calcium 10.2 mg/dL (8.5-10.5) 08/02/24 07:48 Total Bilirubin 0.3 mg/dL (0.15-1.2) 08/02/24 07:48 AST 20 U/L (0-32) 08/02/24 07:48 ALT 13 U/L (0-33) 08/02/24 07:48 Alkaline Phosphatase 93 U/L (35-105) 08/02/24 07:48 Total Protein 8.4 g/dL (6.6-8.7) 08/02/24 07:48 Albumin 4.3 g/dL (3.5-5.2) 08/02/24 07:48 Globulin 4.1 g/dL (1.3-4.6) 08/02/24 07:48 Lipase 9 U/L (13-60) L 08/02/24 07:48 Urine Color Yellow (Yellow) 08/02/24 09:56 Urine Appearance Clear (CLEAR) 08/02/24 09:56 Urine pH 5.5 (5-7) 08/02/24 09:56 Ur Specific [place] 1.020 (1.005-1.030) 08/02/24 09:56 Urine Protein 2+ (Negative) A 08/02/24 09:56 Urine Glucose (UA) 1+ (Normal) H 08/02/24 09:56 Urine Ketones Trace (Negative) 08/02/24 09:56 Urine Blood Negative (Negative) 08/02/24 09:56 Urine Nitrate Negative (Negative) 08/02/24 09:56 Urine Bilirubin Negative (Negative) 08/02/24 09:56 Urine Urobilinogen 1.0 mg/dL (Negative) 08/02/24 09:56 Ur Leukocyte Esterase Trace (Negative) A 08/02/24 09:56 Urine RBC 0-2 /hpf (0-2) 08/02/24 09:56 Urine WBC 0-5 /hpf (0-5) 08/02/24 09:56 Ur Squamous Epith Cells 6-10 /hpf (0-5) 08/02/24 09:56 Amorphous Sediment Not Reportable 08/02/24 09:56 Urine Bacteria Trace /hpf (NONE) 08/02/24 09:56 Hyaline Casts 33.08 /lpf 08/02/24 09:56 Urine Mucus 2+ /hpf 08/02/24 09:56 Serum Ketones Negative (Negative) 08/02/24 07:48 All radiology interpretation(s) finalized by discharge Discharge Plan Discharge Patient Disposition: Home Clinical Impression: Hyperglycemia, Diabetes, Nausea & vomiting Condition: Stable Prescriptions: New promethazine 25 mg tablet 25 mg PO Q6H PRN (Reason: nausea and vomiting) Qty: 20 0RF (DME) Blood Glucose Test Strip See Rx Instructions .Route Qty: 50 0RF Rx Instructions: As directed No Action (DME) ASO brace See Rx Instructions .Route .MEDSUPPLY Qty: 1 0RF Rx Instructions: As directed to HOME (DME) Omnipod 5 G6-G7 Intro Kt(Gen5) Cartridge See Rx Instructions .Route Qty: 1 0RF Rx Instructions: As directed (DME) Omnipod 5 G6-G7 Pods (Gen 5) Cartridge See Rx Instructions .Route Qty: 10 3RF Rx Instructions: change pod every 3 days insulin lispro [Humalog U-100 Insulin] 100 unit/mL solution 50 unit continuous subcutaneous infusion DAILY Qty: 40 1RF Rx Instructions: 50 units via insulin pump daily (DME) insulin syringes (disposable) 1 mL syringe See Rx Instructions .ROUTE .MEDSUPPLY Qty: 500 0RF Rx Instructions: As directed (DME) pen needle, diabetic [Comfort EZ Pen [place]atte] 32 gauge x 3/16 needle See Rx Instructions .Route Qty: 100 0RF Rx Instructions: As directed hydrocodone-acetaminophen 10-325 mg tablet 1 tab PO TID PRN (Reason: pain) 30 Days Qty: 75 0RF (DME) Dexcom G7 Editor In Chief Misc See Rx Instructions .ROUTE .COMPLEX Qty: 1 1RF Dose Instruction: USE DIRECTED Rx Instructions: USE DIRECTED (DME) pen needle, diabetic [Pentips Pen Needle] 32 gauge x 5/32 needle See Rx Instructions .ROUTE .COMPLEX Qty: 100 3RF Dose Instruction: USE DIRECTED Rx Instructions: USE DIRECTED carisoprodol 350 mg tablet 350 mg PO ONCE 30 Days Qty: 30 5RF pregabalin 200 mg capsule 200 mg PO BID 90 Days Qty: 180 1RF hydrochlorothiazide 12.5 mg tablet See Rx Instructions .ROUTE .COMPLEX Qty: 30 6RF Dose Instruction: TAKE ONE TABLET BY MOUTH DAILY NEEDED FOR ankle swelling Rx Instructions: TAKE ONE TABLET BY MOUTH DAILY NEEDED FOR ankle swelling (DME) Dexcom G7 Sensor Device See Rx Instructions .ROUTE .COMPLEX Qty: 3 6RF Dose Instruction: CHANGE EVERY 10 DAYS DIRECTED Rx Instructions: CHANGE EVERY 10 DAYS DIRECTED atorvastatin 20 mg tablet See Rx Instructions .ROUTE .COMPLEX Qty: 90 1RF Dose Instruction: TAKE ONE TABLET BY MOUTH DAILY Rx Instructions: TAKE ONE TABLET BY MOUTH DAILY alprazolam 1 mg tablet 1 mg PO BID PRN (Reason: Anxiety) Qty: 60 4RF albuterol sulfate 90 mcg/actuation Aerosol Powdr Breath Activated 2 inh INHALATION QID PRN (Reason: Shortness Of Breath) fluticasone propionate 50 mcg/actuation spray,suspension 2 spray intranasal DAILY Rx Instructions: USE 2 SPRAYS IN EACH NOSTRIL EVERY DAY Vitamin Plus Low Iron 27 mg iron- 1 mg tablet 1 tab PO DAILY aspirin [Teddy Low Dose Aspirin] 81 mg Tablet,Delayed Release (Dr/Ec) 81 mg PO DAILY Discharge Orders: Discharge ED (Routine); Ordered 08/02/24 Ordered By: Demario Alex Referrals: Bentley Elizabeth MD [Primary Care Provider, Family Practice] Discharge Diet: Usual diet Discharge Activity: Resume usual activity Patient Instructions: Opioid Safety, Pain Management Activity Restrictions/Additional Instructions: Thank you for choosing [facility] for your healthcare needs today. It is very important that you follow up as instructed or that you return to the Emergency Department should you have concerns or if your condition changes or worsens in any way. You were seen emergency room with complaint of nausea vomiting elevated blood sugars. With IV fluids and insulin improved blood sugar is stabilized. We did note that your Dexcom was reading inaccurately by at least 50%. You should monitor your blood sugars with a glucometer you were given test strips to use at home. Continue your usual medications recheck with your doctor as soon as you are able on Sunday. Print Language: Hebrew Coding Level of Care Code ED Training And Development Officer for Karina Isidro
[2024-08-02 08:15] LABS: Alanine Aminotransferase 13 U/L (0-33); Albumin Level 4.3 g/dL (3.5-5.2); Alkaline Phosphatase 93 U/L (35-105); Blood Urea Nitrogen 28 mg/dL (6-20); Calcium 10.2 mg/dL (8.5-10.5); Carbon Dioxide 33 mmol/L (22-29); Chloride 88 mmol/L (98-107); Creatinine Clr Calc Pharmacy 42.7964; Globulin 4.1 g/dL (1.3-4.6); Glomerular Filtration Rate 46.6 mL/min (90-130); Glucose 365 mg/dL (65-115); Lipase 9 U/L (13-60); Osmolality Calculated 300 mOsm/kg (285-295); Sodium 135 mmol/L (136-145); Total Bilirubin 0.3 mg/dL (0.15-1.2); Total Protein 8.4 g/dL (6.6-8.7)
[2024-08-02 08:18] LABS: Aspartate Amino Transferase 20 U/L (0-32)
[2024-08-02] MEDS: insulin regular-human 100 units/1 mL 10 UNIT IVP ×2 (08:32→09:55)
[2024-08-02 08:36] LABS: Glucose Point of Care 389 mg/dL (70-110)
[2024-08-02 09:11] LABS: Glucose Point of Care 325 mg/dL (70-110)
[2024-08-02 10:05] LABS: Glucose Point of Care 221 mg/dL (70-110)
[2024-08-02 10:14] LABS: Bilirubin Urine Negative (Negative); Blood Urine Negative (Negative); Glucose Urine UA 1+ (Normal); Ketones Urine Trace (Negative); Leukocyte Esterase Urine Trace (Negative); Nitrate Urine Negative (Negative); Protein Urine 2+ (Negative); Urine Appearance Clear (CLEAR); Urine Color Yellow (Yellow); pH Urine 5.5 (5-7)
[2024-08-02 10:17] LABS: Add Urine Microscopic? YES; Bacteria Urine Trace /hpf; Hyaline Casts Urine 33.08 /lpf; RBC Urine 0-2 /hpf (0-2); WBC Urine 0-5 /hpf (0-5)
[2024-08-02 10:26] LABS: Mucus Urine 2+ /hpf; UA Slide Review UA Slide Review Perf
[2024-08-02 10:49] LABS: Glucose Point of Care 106 mg/dL (70-110)
[2024-08-02 11:28] LABS: Glucose Point of Care 79 mg/dL (70-110)
[2024-08-02 12:04] LABS: Glucose Point of Care 209 mg/dL (70-110)
== END 2024-08-02 12:23 | disposition home or self-care (01) ==
PROVIDERS: Emergency Provider Family Medicine; PCP Family Medicine
DX: E11.65 Type 2 diabetes mellitus with hyperglycemia (principal); E11.40 Type 2 diabetes mellitus with diabetic neuropathy, unspecified; R11.2 Nausea with vomiting, unspecified; Z79.4 Long term (current) use of insulin; Z79.82 Long term (current) use of aspirin
CPT/HCPCS: 36415; 36416; 36600; 71045; 80051; 80053; 81001; 82009; 82330; 82805; 82962; 83690; 85025; 93005; 96374; 99285; J1815; J7030

== ENCOUNTER 2024-08-06 11:00 | Outpatient (CLI) | payer BC, MEDICAID, SELFPAY ==
--- NOTE | 2024-08-06 11:04 | XRR_ITS ---
PROCEDURE INFORMATION: Exam: XR Chest Exam date and time: 08/06/2024 11:33 AM Age: 54 years old Clinical indication: Injury or trauma; Fall; Blunt trauma (contusions or hematomas); Injury details: Fell 3 days ago. Was dizzy and passed out. Pain primarily on right side; Additional info: Trauma right rib cage. . . . Increased congestion/wheezing TECHNIQUE: Imaging protocol: Radiologic exam of the chest. Views: 2 views. COMPARISON: CR (CHEST, ) 08/02/2024 7:48 AM FINDINGS: Lungs: Mild bibasilar atelectasis/infiltrate, [id number]. No focal lung consolidation. Pleural spaces: No pleural effusion. No pneumothorax. Heart/Mediastinum: No cardiomegaly. Bones/joints: No acute bony abnormality. XR/XR chest 2V* [id number] IMPRESSION: 1. Mild bibasilar atelectasis/infiltrate. Recommend clinical correlation and follow-up imaging as clinically warranted. 2. If there is clinical concern for rib fractures, then consider further evaluation with dedicated rib series or CT scan of the chest
== END 2024-08-06 11:01 | disposition home or self-care (01) ==
LOC: RAD 11:03
PROVIDERS: PCP Family Medicine; Visit Provider Family Medicine
DX: S20.211A Contusion of right front wall of thorax, initial encounter (principal); R91.8 Other nonspecific abnormal finding of lung field; X58.XXXA Exposure to other specified factors, initial encounter
CPT/HCPCS: 71046

== ENCOUNTER 2024-08-20 11:46 | Outpatient (CLI) | payer BC, MEDICAID, SELFPAY ==
--- NOTE | 2024-08-20 11:52 | XR_ITS ---
WS: [id number] XR ribs RT 2V* [id number] REASON FOR EXAM: S29.9XXA - Unspecified injury of thorax, initial encounter FINDINGS: Minimally displaced lateral right sixth and seventh rib fractures. No pneumothorax or subcutaneous emphysema. No lung or pleural abnormality. XR/XR ribs RT 2V* [id number] IMPRESSION: Right rib fractures as above.
== END 2024-08-20 11:47 | disposition home or self-care (01) ==
PROVIDERS: PCP Family Medicine; Visit Provider Family Medicine
DX: S22.41XA Multiple fractures of ribs, right side, initial encounter for closed fracture (principal); X58.XXXA Exposure to other specified factors, initial encounter
CPT/HCPCS: 71100

== ENCOUNTER → 2024-08-26 08:47 | Outpatient (BNVA) | payer BC, MEDICAID, SELFPAY | PROVIDERS: PCP Family Medicine; Visit Provider Podiatrist Foot & Ankle Surgery | DX: M25.572 Pain in left ankle and joints of left foot (principal); G89.29 Other chronic pain; E11.65 Type 2 diabetes mellitus with hyperglycemia; Z79.4 Long term (current) use of insulin; G62.9 Polyneuropathy, unspecified | CPT/HCPCS: 73610 ==

== ENCOUNTER 2024-09-13 13:00 | Emergency (ER) | payer BC, MEDICAID, SELFPAY ==
--- OUTSIDE RECORDS SUMMARY | 2024-09-13 13:04 | XMS_ITS | Clinical Summary ---
Author Organization [facility] Address [address] [place] [address] Phone Care Team Providers Care Shellac Polisher Name Role Phone Bentley Elizabeth MD Primary Care Provider [phone] Allergies No known active allergies Medications ALPRAZolam (XANAX) 1 mg tablet Take 1 mg by mouth 2 times daily. 3 Active atorvastatin (LIPITOR) 20 mg tablet Take 20 mg by mouth daily at bedtime. 3 Active Dexcom G7 Lot Boss use as directed 3 Active Dexcom G7 Sensor Device by See Admin Instructions route every 10 days. 3 Active carisoprodoL (SOMA) 350 mg tablet Take 350 mg by mouth daily. 3 Active fluticasone propionate (FLONASE) 50 mcg/spray [place], Suspension nasal inhaler Administer 1 [place] in each nostril daily. 3 Active hydroCHLOROthia zide 12.5 mg tablet Take 12.5 mg by mouth daily. 3 Active HYDROcodone-yancy taminophen (NORCO) 10-325 mg Tablet Take 1 Tablet by mouth every 8 hours as needed. 3 Active HumuLIN-R U-500, Conc, Kwikpen 500 unit/mL (3 mL) pen Inject 25 Units by subcutaneous injection 3 times daily before meals. 25 units at breakfast, 15 units at lunch and 30 units at evening meal 3 Active metFORMIN (GLUCOPHAGE) 500 mg tablet Take 500 mg by mouth daily. 3 Active pregabalin (LYRICA) 200 mg Capsule Take 1 Capsule by mouth every 12 hours. 3 Active aspirin (ECOTRIN EC) 81 mg Tablet, Delayed Release (E.C.) Take 81 mg by mouth daily. Active melatonin 5 mg Tablet Take 5 mg by mouth nightly as needed. Active naloxone (NARCAN) 4 mg/spray [place], Non-Aerosol EMERGENCY USE ONLY: Administer 1 spray (4 mg) in one nostril one time. May repeat in alternating nostrils every 2-3 min until responsive or EMS arrives. 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 Max Daily Amount: 4 Tablets 20 Tablet 03/06/2023 1:00 PM GALLERY MANAGER 3 Active Active Problems No known active problems Social History Tobacco Use Types Packs/Day Years Used Date Smoking Tobacco: Every Day Cigarettes 0.5 38 Smokeless Tobacco: Never Tobacco Cessation:Ready to Q uit: Not Asked; Counseling Given: Not Answered Alcohol Use Standard Drinks/Week Comments Never 0 (1 standard drink = 0.6 oz pur e alcohol) Feeling Safe Answer Date Recorded Are you in a relationship wi th someone who hurts you emotionally and/or physically? No 03/06/2023 Comments No Sex and Gender Information Value Date Recorded Sex Assigned at Not on file Legal Sex Female 9:51 PM GALLERY MANAGER Gender Identity Not on file Sexual Orientation Not on file Last Filed Vital Signs Vital Sign Reading Time Taken Comments Blood Pressure 114/64 04/16/2023 10:23 AM GALLERY MANAGER Pulse 99 03/06/2023 1:00 PM GALLERY MANAGER Temperature 36.1 C (97 F) 03/06/2023 12:30 PM GALLERY MANAGER Respiratory Rate 22 03/06/2023 12:3 0 PM GALLERY MANAGER Oxygen Saturation 95% 03/06/2023 1:0 0 PM GALLERY MANAGER Inhaled Oxygen Concentration - - Weight 50.3 kg (111 lb) 03/16/2023 10:3 1 AM GALLERY MANAGER PT REPORTED, SCALE IS INACCURATE Height 154.9 cm (5' 1 ) 04/16/2023 10:2 3 AM GALLERY MANAGER Body Mass Index 20.97 03/16/2023 10:31 AM GALLERY MANAGER Plan of Treatment Health Maintenance Due Date Last Done Comments DIABETES ANNUAL FOOT EXAM 07/27/1987 DIABETES ANNUAL RETINAL EXAM 07/27/1987 DIABETES HBA1C Q 6 MONTHS 07/27/1987 DIABETES MICROALBUMIN ANNUAL SCREEN 07/27/1987 LDL CHOLESTEROL ANNUAL 07/27/1987 DTAP/TDAP/TD VACCINES (1 - Tdap) 1988 HEPATITIS B VACCINES (1 of 3 - 19+ 3-dose series) 1988 HPV/Cotest (21-29) 1990 CERVICAL CANCER SCREENING 07/27/1999 HPV/Cotest (30-65) 07/27/1999 PAP SMEAR 07/27/1999 BREAST CANCER SCREENING 2009 COLORECTAL SCREENING 2014 Colorectal Cancer Screening 2014 FIT-DNA Q 3 years 2014 FIT/FOBT Q 1 year 2014 Flex Sig/CT Colonography Q 5 years 2014 ZOSTER VACCINE (1 of 2) 07/27/2019 INFLUENZA VACCINE (#1) 2023 01/17/2021, 2019 Insurance [employer] [place] MEDICAID RX INFOCROSSING Medicaid Care Teams Shellac Polisher Relationship Specialty Start Date End Date Bentley Elizabeth MD [address] [place] [id number] PCP - General Family Practice 03/06/23
[2024-09-13 13:07] VITALS: BP 107/67; PULSE 98; RESP 16; TEMP 36.8; O2SAT 96; BMI 22.8
--- NOTE | 2024-09-13 13:37 | ED_ITS ---
HPI - Skin/Abscess/Foreign Bdy General: Chief complaint: Skin/Abscess/Foreign Body Stated complaint: burn from coffee on arm and stomach Time Seen by Provider: 09/13/24 13:15 Source: patient Mode of arrival: ambulatory Limitations: no limitations History of Present Illness: Patient is a 54-year-old female presents the emergency department for madrigal to her abdomen and right elbow for a week. She states that she spilled coffee on herself, she is concerned that they have not completely healed yet. She is a diabetic states she has issues with chronic sores as it is. No pain reported, no fever, no other concerning symptoms. States she is here because she would rather be safe than sorry. Afebrile at this time, is not reporting any pain. MD complaint: other (Superficial burn) Onset (ago): week(s) (1) Location: generalized (Abdomen) and RUE Severity: mild Context: other (Coffee burn) Associated symptoms: Deny chills, fever(s), nausea or vomiting Treatments prior to arrival: other (Cleaning with antibacterial soap and water) Related Data Home Medications ?Medication ?Instructions ?Recorded ?Confirmed vitamin with calcium 1 tab PO DAILY 07/17/24 08/26/24 no.72-iron 27 mg-folic acid 1 mg tablet ( Vitamins Plus Low Iron) aspirin 81 mg tablet,delayed 81 mg PO DAILY 08/02/24 0 08/26/24 release (Teddy Low Dose Aspirin) Previous Rx's ?Medication ?Instructions ?Recorded blood-glucose,latex spooler,cont #1 ea 05/25/23 (Dexcom G7 Boat Buffer Plastic) insulin pump cartridge,auto #1 ea 03/07/24 dose,BT,G6/G7 with controller subcutaneous (Omnipod 5 G6-G7 Intro Kit(Gen 5) subcutaneous cartridge and controller) pen needle, diabetic 32 gauge x #100 ea 03/07/24 (Pentips Pen Needle) carisoprodol 350 mg tablet 350 mg PO ONCE 30 days #30 tabs 03/25/24 pregabalin 200 mg capsule 200 mg PO BID 90 days #180 c aps 05/11/24 hydrochlorothiazide 12.5 mg tablet See Rx Instructions .Route 05/19/24 .COMPLEX #30 tabs ASO brace #1 ea 05/20/24 insulin lispro 100 unit/mL 50 unit (0.5 mL) continuous 06/11/24 subcutaneous solution (Humalog subcutaneous infusion D AILY #40 mL U-100 Insulin) insulin syringes (disposable) 1 mL #500 ea 06/11/24 pen needle, diabetic 32 gauge x #100 ea 06/11/24 3/16 (Comfort EZ Pen [place]) blood-glucose sensor (Dexcom G7 #3 ea 07/03/24 Sensor device) atorvastatin 20 mg tablet See Rx Instructions .Route 0 07/07/24 .COMPLEX #90 tabs alprazolam 1 mg tablet 1 mg PO BID PRN Anxiety #60 tabs 07/21/24 blood sugar diagnostic (Blood #50 ea 08/02/24 Glucose Test strips) promethazine 25 mg tablet 25 mg PO Q6H PRN nausea and 08/02/24 vomiting #20 tabs albuterol sulfate 90 mcg/actuation 2 inh inhalation QI D PRN Shortness 08/06/24 breath activated powder inhaler Of Breath #1 ea fluticasone propionate 50 See Rx Instructions .Route 0 08/12/24 mcg/actuation nasal .COMPLEX #16 grams spray,suspension diclofenac sodium 75 mg See Rx Instructions .Route 0 08/27/24 tablet,delayed release .COMPLEX #30 tabs insulin pump cart,auto,BT,G6/7 #30 ea 09/09/24 (Omnipod 5 G6-G7 Pods (Gen 5) subcutaneous cartridge) hydrocodone 10 mg-acetaminophen 1 tab PO TID PRN pain 30 days #75 09/10/24 325 mg tablet tabs mupirocin 2 % topical ointment 1 applic topical BID #1 5 grams 09/13/24 Allergies Allergy/AdvReac Type Severity Reaction Status Date / Time No Known Allergies Allergy Verified 08/26/24 08:44 Review of Systems General: Reports: 10 or more systems reviewed and unremarkable except in HPI and below Const: Denies: fever(s) or chills Card: Denies: chest pain Resp: Denies: dyspnea GI: Denies: abdominal pain, nausea, vomiting or diarrhea Musc: Denies: extremity pain or joint pain Skin/Breast: Reports: non-healing lesions (Madrigal to right upper extremity and abdomen); Denies: rash, skin pain or skin tenderness Neuro: Denies: headache(s) PFSH ED PFSH: Medical History Conjunctivitis Right ankle strain No pertinent family history Abnormal weight loss Encounter for screening mammogram for breast cancer Diabetic neuropathy Diabetes Anxiety Hypercholesteremia Chronic bilateral back pain Social History Smoking and tobacco/nicotine status: never used tobacco/nicotine Alcohol intake: never Substance/Drug Use: never Physical Exam Const: COMMON NORMALS: no acute distress, average body habitus, patient oriented x3, no limitations, healthy appearing, alert and well nourished HENMT: COMMON NORMALS: normocephalic and atraumatic HEAD & SCALP: normocephalic and atraumatic Neck/C-Spine: COMMON NORMALS: full ROM, no lymphadenopathy, supple and no meningeal signs Resp: COMMON NORMALS: normal respiratory effort, No use of accessory muscles and clear to auscultation bilaterally AUSCULTATION: clear to auscultation bilaterally Cardio: COMMON NORMALS: regular rate and regular rhythm RATE: regular rate RHYTHM: regular rhythm Extremity: COMMON NORMALS: full ROM and capillary refill normal Neuro: COMMON NORMALS: patient oriented x3 SENSORIUM/ORIENTATION: Yes alert MENINGEAL SIGNS: Yes no meningeal signs Skin: NARRATIVE SKIN EXAM: Superficial burn to her abdomen, scabbed over with no drainage of pus or significant surrounding erythema. Superficial burn over the right olecranon, minimal surrounding erythema with no swelling and this is nontender. Course Vital Signs: Vital signs: Vital Signs Temperature 98.2 F 09/13/24 13:07 Pulse Rate 98 09/13/24 13:07 Respiratory Rate 16 09/13/24 13:07 Blood Pressure 107/67 09/13/24 13:07 Pulse Oximetry 96 09/13/24 13:07 Oxygen Delivery Me thod Room Air 09/13/24 13:07 MDM - Skin/Abscess/Foreign Bdy Medicial Decision Making Patient is presenting with madrigal to her abdomen and right upper extremity that occurred a week ago when she spilled coffee on herself. Is a diabetic, states she has issues with poor healing sores and wanted to make sure that her wounds were not infected at this time. She has been cleansing with antibacterial soap and water, and on exam the madrigal were scabbed over and appeared to be healing well. For MRSA prophylaxis will prescribe bacitracin however continue to cleanse the wounds with warm soap and water and make sure that they are proving and are not demonstrating any signs of infection. Vitals stable, discharge at this time. No radiology studies performed this visit Discharge Plan Discharge Patient Disposition: Home Clinical Impression: Superficial burn Condition: Stable Prescriptions: New mupirocin 2 % ointment 1 applic topical BID Qty: 15 0RF No Action (DME) ASO brace See Rx Instructions .Route .MEDSUPPLY Qty: 1 0RF Rx Instructions: As directed to HOME (DME) Omnipod 5 G6-G7 Intro Kt(Gen5) Cartridge See Rx Instructions .Route Qty: 1 0RF Rx Instructions: As directed insulin lispro [Humalog U-100 Insulin] 100 unit/mL solution 50 unit continuous subcutaneous infusion DAILY Qty: 40 1RF Rx Instructions: 50 units via insulin pump daily (DME) insulin syringes (disposable) 1 mL syringe See Rx Instructions .ROUTE .MEDSUPPLY Qty: 500 0RF Rx Instructions: As directed (DME) pen needle, diabetic [Comfort EZ Pen [place]] 32 gauge x 3/16 needle See Rx Instructions .Route Qty: 100 0RF Rx Instructions: As directed albuterol sulfate 90 mcg/actuation aerosol powdr breath activated 2 inh INHALATION QID PRN (Reason: Shortness Of Breath) Qty: 1 3RF (DME) Dexcom G7 Boat Buffer Plastic Misc See Rx Instructions .ROUTE .COMPLEX Qty: 1 1RF Dose Instruction: USE DIRECTED Rx Instructions: USE DIRECTED (DME) pen needle, diabetic [Pentips Pen Needle] 32 gauge x 5/32 needle See Rx Instructions .ROUTE .COMPLEX Qty: 100 3RF Dose Instruction: USE DIRECTED Rx Instructions: USE DIRECTED carisoprodol 350 mg tablet 350 mg PO ONCE 30 Days Qty: 30 5RF pregabalin 200 mg capsule 200 mg PO BID 90 Days Qty: 180 1RF hydrochlorothiazide 12.5 mg tablet See Rx Instructions .ROUTE .COMPLEX Qty: 30 6RF Dose Instruction: TAKE ONE TABLET BY MOUTH DAILY NEEDED FOR ankle swelling Rx Instructions: TAKE ONE TABLET BY MOUTH DAILY NEEDED FOR ankle swelling (DME) Dexcom G7 Sensor Device See Rx Instructions .ROUTE .COMPLEX Qty: 3 6RF Dose Instruction: CHANGE EVERY 10 DAYS DIRECTED Rx Instructions: CHANGE EVERY 10 DAYS DIRECTED atorvastatin 20 mg tablet See Rx Instructions .ROUTE .COMPLEX Qty: 90 1RF Dose Instruction: TAKE ONE TABLET BY MOUTH DAILY Rx Instructions: TAKE ONE TABLET BY MOUTH DAILY alprazolam 1 mg tablet 1 mg PO BID PRN (Reason: Anxiety) Qty: 60 4RF fluticasone propionate 50 mcg/actuation spray,suspension See Rx Instructions .ROUTE .COMPLEX Qty: 16 5RF Dose Instruction: USE 2 SPRAYS IN EACH NOSTRIL EVERY DAY Rx Instructions: USE 2 SPRAYS IN EACH NOSTRIL EVERY DAY diclofenac sodium 75 mg tablet,delayed release (DR/EC) See Rx Instructions .ROUTE .COMPLEX Qty: 30 3RF Dose Instruction: TAKE 1 TABLET BY MOUTH TWICE DAILY NEEDED FOR PAIN Rx Instructions: TAKE 1 TABLET BY MOUTH TWICE DAILY NEEDED FOR PAIN (DME) Omnipod 5 G6-G7 Pods (Gen 5) Cartridge See Rx Instructions .ROUTE .COMPLEX Qty: 30 1RF Dose Instruction: CHANGE pod EVERY 3 DAYS Rx Instructions: CHANGE pod EVERY 3 DAYS hydrocodone-acetaminophen 10-325 mg tablet 1 tab PO TID PRN (Reason: pain) 30 Days Qty: 75 0RF Vitamin Plus Low Iron 27 mg iron- 1 mg tablet 1 tab PO DAILY aspirin [Teddy Low Dose Aspirin] 81 mg Tablet,Delayed Release (Dr/Ec) 81 mg PO DAILY promethazine 25 mg tablet 25 mg PO Q6H PRN (Reason: nausea and vomiting) Qty: 20 0RF (DME) Blood Glucose Test Strip See Rx Instructions .Route Qty: 50 0RF Rx Instructions: As directed Discharge Orders: Discharge ED (Routine); Ordered 09/13/24 Ordered By: Marco Yadav Referrals: Bentley Elizabeth MD [Primary Care Provider, Family Practice] Patient Instructions: Superficial Burn (ED), Patient Portal & [facility] Instructions Activity Restrictions/Additional Instructions: Continue gently cleaning the area with soap and water. Apply the topical bacitracin as prescribed. Tylenol or ibuprofen for pain. Monitor for any fever, increasing redness/swelling/pain, drainage of pus, foul odor, or b listering and return to the ED as we discussed. Print Language: Kyrgyz Coding Level of Care Code ED Recruitment Assistant for Karina Isidro
== END 2024-09-13 13:49 | disposition home or self-care (01) ==
PROVIDERS: Emergency Provider Physician Assistant; PCP Family Medicine
DX: T21.02XA Burn of unspecified degree of abdominal wall, initial encounter (principal); T22.021A Burn of unspecified degree of right elbow, initial encounter; Z79.4 Long term (current) use of insulin; Z79.82 Long term (current) use of aspirin; E11.40 Type 2 diabetes mellitus with diabetic neuropathy, unspecified; X10.0XXA Contact with hot drinks, initial encounter
CPT/HCPCS: 99283

== ENCOUNTER 2024-10-08 11:46 | Outpatient (CLI) | payer MEDICAID, SELFPAY ==
[2024-10-08 13:03] LABS: Estmated Average Glucose 249; Hemoglobin A1C 10.3 % (4.0-6.0)
[2024-10-08 13:10] LABS: Creatinine Urine, Random 233 mg/dL (28-217)
[2024-10-08 13:12] LABS: Alanine Aminotransferase 31 U/L (0-33); Albumin Level 4.2 g/dL (3.5-5.2); Alkaline Phosphatase 97 U/L (35-105); Chloride 103 mmol/L (98-107); Cholesterol 160 mg/dL (0-200); HDL Cholesterol 65 mg/dL (60-100); Potassium 4.6 mmol/L (3.5-5.1); Sodium 141 mmol/L (136-145)
[2024-10-08 13:13] LABS: Microalbum Creatinine Ratio Ur 52 mg/dL (0-20)
[2024-10-08 13:49] LABS: Anion Gap 18.4 (5-19); Aspartate Amino Transferase 32 U/L (0-32); Blood Urea Nitrogen 39 mg/dL (6-20); Calcium 9.7 mg/dL (8.5-10.5); Carbon Dioxide 24 mmol/L (22-29); Globulin 3.7 g/dL (1.3-4.6); Glucose 119 mg/dL (65-115); Osmolality Calculated 303 mOsm/kg (285-295); Total Protein 8.0 g/dL (6.6-8.7); Triglycerides 90 mg/dL (0-150)
== END 2024-10-08 11:47 | disposition home or self-care (01) ==
PROVIDERS: PCP Family Medicine; Visit Provider Internal Medicine
DX: E78.00 Pure hypercholesterolemia, unspecified (principal); E11.65 Type 2 diabetes mellitus with hyperglycemia; Z79.4 Long term (current) use of insulin
CPT/HCPCS: 36415; 80053; 80061; 82044; 83036

== ENCOUNTER 2025-02-02 10:10 | Outpatient (CLI) | payer MEDICAID, SELFPAY ==
[2025-02-02 11:24] LABS: Alanine Aminotransferase 41 U/L (0-33); Albumin Level 4.2 g/dL (3.5-5.2); Alkaline Phosphatase 126 U/L (35-105); Anion Gap 11.1 (5-19); Aspartate Amino Transferase 31 U/L (0-32); Blood Urea Nitrogen 28 mg/dL (6-20); Calcium 9.2 mg/dL (8.5-10.5); Carbon Dioxide 30 mmol/L (22-29); Chloride 106 mmol/L (98-107); Cholesterol 190 mg/dL (0-200); Globulin 3.6 g/dL (1.3-4.6); Glucose 233 mg/dL (65-115); HDL Cholesterol 84 mg/dL (60-100); Osmolality Calculated 307 mOsm/kg (285-295); Potassium 5.1 mmol/L (3.5-5.1); Sodium 142 mmol/L (136-145); Total Protein 7.8 g/dL (6.6-8.7); Triglycerides 132 mg/dL (0-150)
[2025-02-02 11:26] LABS: Creatinine Urine, Random 101 mg/dL (28-217)
[2025-02-02 11:26] LABS: Estmated Average Glucose 206; Hemoglobin A1C 8.8 % (4.0-6.0)
[2025-02-02 11:27] LABS: Microalbum Creatinine Ratio Ur 178 mg/dL (0-20)
== END 2025-02-02 10:11 | disposition home or self-care (01) ==
LOC: LAB 10:12
PROVIDERS: PCP Family Medicine; Visit Provider Internal Medicine
DX: E11.65 Type 2 diabetes mellitus with hyperglycemia (principal); Z79.4 Long term (current) use of insulin
CPT/HCPCS: 36415; 80053; 80061; 82044; 83036